=== PATIENT | female | born 1950 | race Caucasian/White ===

== ENCOUNTER 2019-04-03 11:40 | Emergency (ER) | payer OTHER ==
[2019-04-03] MEDS ORDERED: NA CHLORIDE 0.9% 500 ML ONE (15:33)
[2019-04-03] MEDS ORDERED: CLINDAMYCIN 900MG/D5W 900 MG/50 ML IVPB IV ONE (15:33)
--- NOTE | 2019-04-03 15:35 | RAD REPORT ---
EXAM DESCRIPTION: RAD - Chest Single View - 04/03/2019 3:20 pm CLINICAL HISTORY: COUGH Chest pain. COMPARISON: Chest Single View dated 03/07/2017; Chest Single View dated 11/20/2015; CHEST PA AND LAT 2 VIEW dated 08/20/2014 FINDINGS: Portable technique limits examination quality. The lungs are emphysematous but grossly clear. The heart is normal in size. No displaced fractures. IMPRESSION: No acute intrathoracic process suspected.
[2019-04-03 15:37] LABS: Absolute Lymphocytes (CBC) 2.9 K/uL (0.7-4.9); Basophils % 1.3 % (0-1.3); Hematocrit 42.3 % (36.0-45.0); Lymphocytes % 29.8 % (15.3-44.8); RBC Red Blood Cell Count 4.88 M/uL (3.86-4.86)
[2019-04-03 15:53] LABS: Albumin 4.1 g/dL (3.4-5.0); Bilirubin Total 0.5 mg/dL (0.2-1.0); Potassium 4.3 mmol/L (3.5-5.1); Protein, Total 7.5 g/dL (6.4-8.2)
--- NOTE | 2019-04-03 16:22 | EDPHYS ---
Physician Documentation [facility] Name: Traci Sams Age: 69 yrs Sex: Female : 1950 Arrival Date: 04/03/2019 Time: 11:42 Bed 30 Private MD: ED Physician Bob Peters HPI: 04/03 14:49 This 69 yrs old Female presents to ER via Ambulatory with complaints of Neck estelle Swelling. 14:49 The patient or guardian complains of pain, swelling. The symptoms are located on the estelle right anterior aspect of neck. Onset: The symptoms/episode began/occurred 5 day(s) ago. Context: The problem was sustained at an unknown location. Associated signs and symptoms: The patient has no apparent associated signs or symptoms. Modifying factors: The symptoms are alleviated by remaining still, the symptoms are aggravated by movement, pressure. Severity of symptoms: At their worst the symptoms were mild, in the emergency department the symptoms are unchanged. The patient has not experienced similar symptoms in the past. Historical: - Allergies: 11:43 Codeine; sv - Home Meds: 13:38 Vitamin D Oral daily [Active]; tw2 - PMHx: 11:43 Arthritis; Osteoporosis; sv - PSHx: 11:43 Hysterectomy; Appendectomy; ovary; throat; sv - Immunization history:: Adult Immunizations up to date. - Social history:: Smoking status: Patient/guardian denies using tobacco, the patient reports quitting approximately .1 years ago. - Ebola Screening: : No symptoms or risks identified at this time. ROS: 14:49 Constitutional: Negative for fever, chills, and weight loss, Eyes: Negative for injury, estelle pain, redness, and discharge, ENT: Negative for injury, pain, and discharge, Cardiovascular: Negative for chest pain, palpitations, and edema, Respiratory: Negative for shortness of breath, cough, wheezing, and pleuritic chest pain, Abdomen/GI: Negative for abdominal pain, nausea, vomiting, diarrhea, and constipation, Back: Negative for injury and pain, : Negative for injury, bleeding, discharge, and swelling, MS/Extremity: Negative for injury and deformity, Skin: Negative for injury, rash, and discoloration, Neuro: Negative for headache, weakness, numbness, tingling, and seizure, Psych: Negative for depression, anxiety, suicide ideation, homicidal ideation, and hallucinations, Allergy/Immunology: Negative for hives, rash, and allergies, Endocrine: Negative for neck swelling, polydipsia, polyuria, polyphagia, and marked weight changes, Hematologic/Lymphatic: Negative for swollen nodes, abnormal bleeding, and unusual bruising. 14:49 Neck: Positive for mass, swelling, tenderness. Exam: 14:49 Constitutional: This is a well developed, well nourished patient who is awake, alert, estelle and in no acute distress. Head/Face: Normocephalic, atraumatic. Eyes: Pupils equal round and reactive to light, extra-ocular motions intact. Lids and lashes normal. Conjunctiva and sclera are non-icteric and not injected. Cornea within normal limits. Periorbital areas with no swelling, redness, or edema. ENT: Nares patent. No nasal discharge, no septal abnormalities noted. Tympanic membranes are normal and external auditory canals are clear. Oropharynx with no redness, swelling, or masses, exudates, or evidence of obstruction, uvula midline. Mucous membranes moist. Chest/axilla: Normal chest wall appearance and motion. Nontender with no deformity. No lesions are appreciated. Cardiovascular: Regular rate and rhythm with a normal S1 and S2. No gallops, murmurs, or rubs. Normal PMI, no JVD. No pulse deficits. Respiratory: Lungs have equal breath sounds bilaterally, clear to auscultation and percussion. No rales, rhonchi or wheezes noted. No increased work of breathing, no retractions or nasal flaring. Abdomen/GI: Soft, non-tender, with normal bowel sounds. No distension or tympany. No guarding or rebound. No evidence of tenderness throughout. Back: No spinal tenderness. No costovertebral tenderness. Full range of motion. Skin: Warm, dry with normal turgor. Normal color with no rashes, no lesions, and no evidence of cellulitis. MS/ Extremity: Pulses equal, no cyanosis. Neurovascular intact. Full, normal range of motion. Neuro: Awake and alert, GCS 15, oriented to person, place, time, and situation. Cranial nerves II-XII grossly intact. Motor strength 5/5 in all extremities. Sensory grossly intact. Cerebellar exam normal. Normal gait. Psych: Awake, alert, with orientation to person, place and time. Behavior, mood, and affect are within normal limits. 14:49 Neck: External neck: no acute changes, C-spine: appears grossly normal, no acute changes, Thyroid: appears normal, no acute changes, Trachea: is midline with no obvious abnormalities, no acute changes, ROM/movement: is normal, no acute changes, Lymph nodes: no appreciated lymphadenopathy. Vital Signs: 11:44 BP 120 / 72; Pulse 99; Resp 20; Temp 97.6(O); Pulse Ox 99% ; Weight 91.63 kg; Height 5 sv ft. 0 in. (152.40 cm); 13:48 Temp 97.9; jp3 11:44 Body Mass Index 39.45 (91.63 kg, 152.40 cm) sv MDM: 13:33 Patient medically screened. [facility] 14:52 Data reviewed: vital signs, nurses notes, lab test result(s), radiologic studies, CT estelle scan, plain films. 04/03 14:49 Order name: CBC with Diff; Complete Time: 15:49 [facility] 04/03 14:49 Order name: Comprehensive Metabolic Panel; Complete Time: 16:07 [facility] 04/03 14:49 Order name: CT Soft Tissue Neck W/contr; Complete Time: 16:43 [facility] 04/03 14:49 Order name: Chest Single View XRAY; Complete Time: 15:49 [facility] Administered Medications: 15:43 Drug: Clindamycin 900 mg Route: IVPB; Infused Over: 30 mins; Site: left forearm; tr5 16:20 Follow up: IV Status: Completed infusion; IV Intake: 50ml tr5 15:44 Drug: NS 0.9% 500 ml Route: IV; Rate: bolus; Site: left forearm; tr5 16:20 Follow up: IV Status: Completed infusion; IV Intake: 500ml tr5 Disposition: 04/03/19 16:22 Discharged to Home. Impression: Localized swelling, mass and lump, neck - submandibular. - Condition is Stable. - Prescriptions for Clindamycin HCl 300 mg Oral Capsule - take 1 capsule by ORAL route every 6 hours for 7 days; 28 capsule. Tramadol 50 mg Oral Tablet - take 1 tablet by ORAL route every 6 hours as needed; 26 tablet. - Medication Reconciliation Form, Thank You Letter, Antibiotic Education, Prescription Opioid Use form. - Follow up: Private Physician; When: 2 - 3 days; Reason: Recheck today's complaints, Continuance of care, Re-evaluation by your physician. Follow up: Maisha Neil; When: 2 - 3 days; Reason: Recheck today's complaints, Re-evaluation by your physician. - Problem is new. - Symptoms have improved. Signatures: Dispatcher [employer] EDMS Maisha Grissom, RN RN Bob Olmos MD MD cha Wise, Tara, RN RN tw2 Vincent Ware RN RN tr5 Corrections: (The following items were deleted from the chart) 16:59 16:22 04/03/2019 16:22 Discharged to Home. Impression: Localized swelling, mass and tr5 lump, neck - submandibular. Condition is Stable. Forms are Medication Reconciliation Form, Thank You Letter, Antibiotic Education, Prescription Opioid Use. Follow up: Private Physician; When: 2 - 3 days; Reason: Recheck today's complaints, Continuance of care, Re-evaluation by your physician. Follow up: Maisha Neil; When: 2 - 3 days; Reason: Recheck today's complaints, Re-evaluation by your physician. Problem is new. Symptoms have improved. estelle
--- NOTE | 2019-04-03 16:22 | ER ---
Nurse's Notes [facility] Name: Traci Sams Age: 69 yrs Sex: Female : 1950 Arrival Date: 04/03/2019 Time: 11:42 Bed 30 Private MD: Diagnosis: Localized swelling, mass and lump, neck-submandibular Presentation: 04/03 11:43 Presenting complaint: Patient states: "I got this lump on my neck and its hard and its sv painful, came up yesterday.". Transition of care: patient was not received from another setting of care. Onset of symptoms was April 02, 2019. Risk Assessment: Do you want to hurt yourself or someone else? Patient reports no desire to harm self or others. Care prior to arrival: None. 11:43 Method Of Arrival: Ambulatory sv 11:43 Acuity: SHERON 3 sv 13:37 Initial Sepsis Screen: Does the patient meet any 2 criteria? No. Patient's initial tw2 sepsis screen is negative. Does the patient have a suspected source of infection? No. Patient's initial sepsis screen is negative. Triage Assessment: 11:45 General: Appears in no apparent distress. uncomfortable, Behavior is calm, cooperative, sv appropriate for age. Pain: Complains of pain in right anterior aspect of neck. Neuro: Level of Consciousness is awake, alert, obeys commands, Gait is steady. Respiratory: Respiratory effort is even, unlabored, Respiratory pattern is regular, symmetrical. Historical: - Allergies: 11:43 Codeine; sv - Home Meds: 13:38 Vitamin D Oral daily [Active]; tw2 - PMHx: 11:43 Arthritis; Osteoporosis; sv - PSHx: 11:43 Hysterectomy; Appendectomy; ovary; throat; sv - Immunization history:: Adult Immunizations up to date. - Social history:: Smoking status: Patient/guardian denies using tobacco, the patient reports quitting approximately .1 years ago. - Ebola Screening: : No symptoms or risks identified at this time. Screenin:37 Abuse screen: Denies threats or abuse. Nutritional screening: No deficits noted. tw2 Tuberculosis screening: No symptoms or risk factors identified. Fall Risk Secondary diagnosis (15 points) impaired mobility, Ambulatory Aid- Crutches/Cane/Walker (15 pts). Assessment: 15:00 General: Appears in no apparent distress. Behavior is calm, cooperative, appropriate tr5 for age. Pain: Complains of pain in neck. Neuro: Level of Consciousness is awake, alert, obeys commands, Oriented to person, place, time, Window Shade Cutter And Mounter are equal bilaterally Moves all extremities. Cardiovascular: Heart tones present Capillary refill < 3 seconds Pulses are all present. Respiratory: Airway is patent Respiratory effort is even, unlabored, Respiratory pattern is regular, symmetrical. GI: No signs and/or symptoms were reported involving the gastrointestinal system. : No signs and/or symptoms were reported regarding the genitourinary system. EENT: Throat on right Swelling. Derm: No signs and/or symptoms reported regarding the dermatologic system. Musculoskeletal: No signs and/or symptoms reported regarding the musculoskeletal system. Vital Signs: 11:44 BP 120 / 72; Pulse 99; Resp 20; Temp 97.6(O); Pulse Ox 99% ; Weight 91.63 kg; Height 5 sv ft. 0 in. (152.40 cm); 13:48 Temp 97.9; jp3 11:44 Body Mass Index 39.45 (91.63 kg, 152.40 cm) sv ED Course: 11:42 Patient arrived in ED. sv 11:44 Triage completed. sv 11:45 Arm band placed on. sv 13:33 Bob Peters MD is Attending Physician. estelle 13:36 Natalie Bermudez, RN is Primary Nurse. tw2 13:37 Bed in low position. Call light in reach. shelter monitor on. Pulse ox on. NIBP on. tw2 13:49 Warm blanket given. Verbal reassurance given. jp3 13:49 Patient maintains SpO2 saturation greater than 95% on room air. jp3 14:22 Vincent Ware, RN is Primary Nurse. tr5 14:54 Radiology exam delayed due to lab results not completed at this time. (BUN/Creatinine) sj IV insertion attempt and/or patient not having appropriate IV at this time. 15:18 Chest Single View XRAY In Process Unspecified. EDMS 15:25 Initial lab(s) drawn, by me, sent to lab. Inserted saline lock: 22 gauge in left tr5 forearm, using aseptic technique. 15:28 Radiology exam delayed due to lab results not completed at this time. (BUN/Creatinine). nj 15:48 Radiology exam delayed due to lab results not completed at this time. (BUN/Creatinine). ri 16:19 CT Soft Tissue Neck W/contr In Process Unspecified. EDNY 16:22 Maisha Neil MD is Referral Physician. [facility] 16:55 No provider procedures requiring assistance completed. IV discontinued. tr5 Administered Medications: 15:43 Drug: Clindamycin 900 mg Route: IVPB; Infused Over: 30 mins; Site: left forearm; tr5 16:20 Follow up: IV Status: Completed infusion; IV Intake: 50ml tr5 15:44 Drug: NS 0.9% 500 ml Route: IV; Rate: bolus; Site: left forearm; tr5 16:20 Follow up: IV Status: Completed infusion; IV Intake: 500ml tr5 Outcome: 16:22 Discharge ordered by . [facility] 16:55 Discharged to home ambulatory. tr5 16:55 Condition: stable 16:55 Discharge instructions given to patient, Instructed on discharge instructions, follow up and referral plans. medication usage, Demonstrated understanding of instructions, follow-up care, medications, Prescriptions given X 2. 16:59 Patient left the ED. tr5 Signatures: Dispatcher [employer] EDNY Maisha Grissom, RN RN Bob Olmos MD MD cha Jones, Susan sj Wise, Tara, RN RN tw2 Nj Solano Jacob jp3 Vincent Ware, CASSI RN tr5 Corrections: (The following items were deleted from the chart) 11:46 11:43 Acuity: SHERON 4 sv sv 11:46 11:44 Pulse 99bpm; Resp 20bpm; Pulse Ox 99%; Temp 97.6F Oral; 91.63 kg; Height 5 ft. 0 sv in.; BMI: 39.4; sv
--- NOTE | 2019-04-03 16:30 | RAD REPORT ---
EXAM DESCRIPTION: CT - Soft Tissue Neck W/Contr CLINICAL HISTORY: PAIN Neck pain, mass COMPARISON: No comparisons TECHNIQUE All CT scans are performed using dose optimization technique as appropriate and may includ e automated exposure control or mA/KV adjustment according to patient size. FINDINGS: Slightly hyperdense rounded mass is present measuring 15 x 15 mm along the inferior anteri or aspect of the left parotid gland. A few benign-appearing but mildly prominent lymph nodes are seen along the jugular chain bilaterally. The right submandibular gland appears slightly prominent relative to the left with evidence of mild dilatation the salivary duct within the gland. No prevertebral soft tissue swelling or abscess. Thyroid gland appears symmetric. 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
[2019-04-03 17:56] VITALS: BP 120/72; O2SAT 99
[2019-04-03 17:57] VITALS: TEMP 97.9
== END 2019-04-03 16:59 | disposition home or self-care (01) ==
LOC: ER 11:40
DX: R22.1 Localized swelling, mass and lump, neck (principal); Z88.6 Allergy status to analgesic agent
CPT/HCPCS: 96365; 85025; 36415; 80053; 70491; 71045; 99285; Q9967; J7040

== ENCOUNTER 2020-04-06 09:34 | Emergency (ER) | payer OTHER ==
--- OUTSIDE RECORDS SUMMARY | 2020-04-06 09:37 | XMS REPORT | Clinical Summary ---
:1950 Author Organization [facility] Address [address] [place] [address] Care Team Providers Name Role Phone Nirav Primary Care Provider Allergies Active Allergy Reactions Severity Noted Date Comments Raysa Other (See Comments) 10/04/2018 Does no t remember the reaction she quigley d Medications Medication Sig Dispensed Refills Start Date End Date Status Missing or Vit D daily . 0 Activ e Non-Formulary Medication diclofenac (VOLTAREN) Take 75 mg by 0 Active 75 MG EC tablet mouth 2 (two) times daily. alendronate (FOSAMAX) Take 70 mg by 0 Active 70 MG tablet mouth every 7 days Take in the morning with a full glass of water, on an empty stomach, and do not take anything else by mouth or lie down for the next 30 min. . Active Problems Not on file Social History Tobacco Use Types Packs/Day Years Used Date Current Every Day Smoker 0.5 27 Smokeless Tobacco: Never Used Alcohol Use Drinks/Week oz/Week Comments No Alcohol Habits Answer Date Recorded How often do you have a drink containing alcohol? Never 10/04/2018 How many drinks containing alcohol do you have on a typical Not asked day when you are drinking? How often do you have six or more drinks on one occasion? No t asked Sex Assigned at Date Recorded Not on file Last Filed Vital Signs Not on file Plan of Treatment Not on file Results Not on fileafter 04/06/2019 Insurance Payer Benefit Plan / Subscriber ID Effective Phone Address T ype Group Dates [employer] [id number] 2018-Pre [facility] ALL sent Contracted
[2020-04-06 10:05] LABS: Absolute Lymphocytes (CBC) 1.4 K/uL (0.7-4.9); Basophils % 1.3 % (0-1.3); Hematocrit 42.3 % (36.0-45.0); Lymphocytes % 14.9 % (15.3-44.8); MPV 8.7 fL (7.6-11.3)
[2020-04-06 10:11] LABS: Protime INR 1.03
[2020-04-06] MEDS ORDERED: ONDANSETRON 4 MG/2 ML VIAL ONE (10:13)
[2020-04-06] MEDS ORDERED: MECLIZINE HCL 12.5 MG TAB ONE (10:13)
[2020-04-06] MEDS ORDERED: NA CHLORIDE 0.9% 500 ML ONE (10:14)
--- NOTE | 2020-04-06 10:28 | RAD REPORT ---
EXAM DESCRIPTION: CT - Head Brain Wo Cont - 04/06/2020 10:10 am CLINICAL HISTORY: DIZZINESS COMPARISON: Soft Tissue Neck W/Contr dated 04/03/2019 TECHNIQUE: Axial 5 mm thick images of the head were obtained without IV contrast. All CT scans are performed using dose optimization technique as appropriate and may include automated exposure control or mA/KV adjustment according to patient size. FINDINGS: No intracranial hemorrhage, mass, edema or shift of mid-line structures. No acute cortical based infarction, cortical edema or sulcal effacement. Chronic ischemic changes are scattered in the cerebral white matter. Atrophy changes are minimal. Ventricles are normal. Mastoid air cells and visualized portions of the paranasal sinuses are clear. No acute bony findings. IMPRESSION: Minimal atrophy with mild chronic ischemic change. No acute intracranial finding.
[2020-04-06 10:30] LABS: ALT/SGPT 19 U/L (12-78); AST/SGOT 11 U/L (15-37); Albumin 3.5 g/dL (3.4-5.0); Alkaline Phosphatase 98 U/L (45-117); BUN Blood Urea Nitrogen 16 mg/dL (7-18); Bicarbonate 26 mmol/L (21-32); Bilirubin Direct 0.2 mg/dL (0-0.2); Bilirubin Total 0.6 mg/dL (0.2-1.0); Glucose Level 107 mg/dL (74-106); Magnesium 2.3 mg/dL (1.8-2.4); NT PRO-BNP 185 pg/mL (<125); Potassium 4.1 mmol/L (3.5-5.1); Protein, Total 7.4 g/dL (6.4-8.2); Sodium Level 141 mmol/L (136-145); Troponin (Emerg Dept Use Only) < 0.02 ng/mL (0.0-0.045)
[2020-04-06 12:09] LABS: Urine Bacteria >50 /HPF (<20); Urine Culture Reflex Order REFLEXED; Urine RBC <5 /HPF (NONE SEEN)
--- NOTE | 2020-04-06 12:14 | RAD REPORT ---
EXAM DESCRIPTION: RAD - Chest Single View - 04/06/2020 11:02 am CLINICAL HISTORY: SOB COMPARISON: June 2019 TECHNIQUE: AP portable chest image was obtained 04/06/2020 11:02 am . FINDINGS: Lungs are clear. Body habitus and portable technique accentuate lung bases. Pericardial fa t pads are present. Heart size is accentuated by rotation. No measurable pleural effusion and no pneu mothorax. No acute bony abnormality seen. No acute aortic findings suspected. IMPRESSION: No acute cardiopulmonary process. No significant change from comparison.
[2020-04-06 12:33] LABS: Urine Blood 2+ (NEG); Urine Glucose NEGATIVE (NEG); Urine Protein NEGATIVE (NEG); Urine pH 5.5 (5.0-7.0)
[2020-04-06] MEDS ORDERED: NA CHLORIDE 0.9% 100 ML IV ONE (12:39)
[2020-04-06] MEDS ORDERED: CEFTRIAXONE/SWI 1gm 1 GM/10 ML SYR ONE (12:39)
--- NOTE | 2020-04-06 13:23 | ER ---
Nurse's Notes [facility] Name: Traci Sams Age: 70 yrs Sex: Female : 1950 Arrival Date: 04/06/2020 Time: 09:37 Bed 6 Private MD: Diagnosis: Dizziness and giddiness;Nausea;Urinary tract infection, site not specified Presentation: 04/06 09:38 Chief complaint: EMS states: DIZZINESS AND NAUSEA THIS AM. Coronavirus screen: At this bp time, the client does not indicate any symptoms associated with coronavirus-19. Ebola Screen: No symptoms or risks identified at this time. Initial Sepsis Screen: Does the patient meet any 2 criteria? HR > 90 bpm. No. Patient's initial sepsis screen is negative. Does the patient have a suspected source of infection? No. Patient's initial sepsis screen is negative. Risk Assessment: Do you want to hurt yourself or someone else? Patient reports no desire to harm self or others. Onset of symptoms is unknown. Care prior to arrival: Medication(s) given: zofran 4 mg, IV initiated. 20 GA, in the right antecubital area. 09:38 Method Of Arrival: EMS: [facility] bp 09:38 Acuity: SHERON 3 bp Triage Assessment: 09:41 General: Appears distressed, obese, Behavior is cooperative, appropriate for age, bp anxious. Pain: Complains of pain in GENERALIZED CHRONIC. EENT: No deficits noted. Neuro: Reports dizziness. Cardiovascular: No deficits noted. Respiratory: No deficits noted. GI: No signs and/or symptoms were reported involving the gastrointestinal system. : No signs and/or symptoms were reported regarding the genitourinary system. Derm: No deficits noted. Musculoskeletal: No deficits noted. Historical: - Allergies: 09:41 Codeine; bp - PMHx: 09:41 Arthritis; Osteoporosis; COPD; bp - Immunization history:: Adult Immunizations unknown. - Social history:: Smoking status: Patient reports the use of cigarette tobacco products, Patient/guardian denies using tobacco, the patient reports quitting approximately 1 years ago. Screenin:44 Abuse screen: Denies threats or abuse. Denies injuries from another. Nutritional bp screening: No deficits noted. Tuberculosis screening: No symptoms or risk factors identified. Fall Risk None identified. Assessment: :44 General: SEE TRIAGE NOTE. bp 10:30 Reassessment: PT TO RADIOLOGY. bp 11:32 Reassessment: Patient appears in no apparent distress at this time. Patient and/or bp family updated on plan of care and expected duration. Pain level reassessed. UOP PENDING. 13:00 Reassessment: Patient appears in no apparent distress at this time. Patient and/or bp family updated on plan of care and expected duration. Pain level reassessed. Patient is alert, oriented x 3, equal unlabored respirations, skin warm/dry/pink. PT AMBULATED IN HALLWAY WITH CANE. 13:32 Reassessment: PT D/C HOME VIA W/C, DX WITH DIZZINESS AND NAUSEA. bp Vital Signs: 09:38 BP 118 / 50; Pulse 107; Resp 20; Temp 97.6; Pulse Ox 97% ; bp 11:10 BP 134 / 82 Supine; Pulse 95; Resp 20; Pulse Ox 95% on R/A; mh5 11:12 BP 149 / 84 Sitting; Pulse 102; Resp 20; Pulse Ox 92% on R/A; mh5 12:35 BP 139 / 66; Pulse 98; Resp 20; Temp 98.0; Pulse Ox 95% on R/A; dh4 13:32 BP 145 / 72; Pulse 95; Resp 17; Temp 98; Pulse Ox 95% ; bp ED Course: 09:37 Patient arrived in ED. em1 09:38 Donny Hauser, CASSI is Primary Nurse. bp 09:40 Triage completed. bp 09:41 Bob Zavala PA is PHCP. cp 09:41 Tyler Torres MD is Attending Physician. cp 09:41 Arm band placed on. bp 09:44 Patient has correct armband on for positive identification. Bed in low position. Call bp light in reach. Side rails up X2. 09:45 Maintain EMS IV. Dressing intact. Good blood return noted. Site clean \T\ dry. Gauge \T\ bp site: 20 GAUGE R AC. 10:10 CT Head Brain wo Cont In Process Unspecified. EDMS 11:04 XRAY Chest (1 view) In Process Unspecified. EDMS 11:21 Warm blanket given. property assessment monitor on. Pulse ox on. NIBP on. mh5 11:22 Initial lab(s) drawn, by ED staff, sent to lab. Maintain EMS IV. Site clean \T\ dry. [facility] 11:59 Urine Microscopic Only Sent. [facility] 11:59 Urine collected: clean catch specimen, cloudy. [facility] 13:32 No provider procedures requiring assistance completed. IV discontinued, intact, bp bleeding controlled, No redness/swelling at site. Pressure dressing applied. Administered Medications: 10:00 Drug: Meclizine 25 mg Route: PO; bp 12:18 Follow up: Response: No adverse reaction bp 10:00 Drug: Zofran (Ondansetron) 4 mg Route: IVP; Site: right antecubital; bp 12:18 Follow up: Response: No adverse reaction bp 10:00 Drug: NS 0.9% 500 ml Route: IV; Rate: 500 ml/hr; Site: right antecubital; bp 12:30 Drug: Rocephin - (cefTRIAXone) 1 grams Route: IVPB; Infused Over: 30 mins; Site: right bp antecubital; Outcome: 13:23 Discharge ordered by MD. 13:32 Discharged to home via wheelchair, with family. bp 13:32 Condition: stable 13:32 Discharge instructions given to patient, Instructed on discharge instructions, follow up and referral plans. medication usage, Demonstrated understanding of instructions, follow-up care, medications, Prescriptions given X 3. 13:33 Patient left the ED. bp Addendum: 04/09/2020 08:18 Addendum: Culture Results: Positive urine culture. No further action required. Bacteria s s sensitive to prescribed antibiotic. Signatures: Dispatcher [employer] EDMS Bryant Holden em1 Marcella Randall RN RN ss Page, Corey, PA PA cp Martinez, Maria [facility] Donny Hauser RN RN bp Huhn, Donald [facility] Corrections: (The following items were deleted from the chart) 04/06 12:35 11:14 BP 140 / 94 Standing; Pulse 106bpm; Resp 20bpm; Pulse Ox 94% RA; [facility]
--- NOTE | 2020-04-06 13:23 | EDPHYS ---
Physician Documentation [facility] Name: Traci Sams Age: 70 yrs Sex: Female : 1950 Arrival Date: 04/06/2020 Time: 09:37 Bed 6 Private MD: ED Physician Tyler Torres HPI: 04/06 09:50 This 70 yrs old Female presents to ER via EMS with complaints of Dizziness. cp 09:50 The patient presents with dizziness, feeling faint, generalized weakness, cp lightheadedness. Onset: The symptoms/episode began/occurred this morning. Modifying factors: the symptoms are aggravated by standing up, lying flat. Associated signs and symptoms: Pertinent positives: nausea, near-syncope, Pertinent negatives: abdominal pain, chest pain, diaphoresis, focal weakness, headache, palpitations, vomiting. Patient's baseline: Neuro: alert and fully oriented, Motor: no deficits, Ambulation: walks with assist only, uses cane, Speech: normal. Historical: - Allergies: 09:41 Codeine; bp - PMHx: 09:41 Arthritis; Osteoporosis; COPD; bp - Immunization history:: Adult Immunizations unknown. - Social history:: Smoking status: Patient reports the use of cigarette tobacco products, Patient/guardian denies using tobacco, the patient reports quitting approximately 1 years ago. ROS: 09:52 Eyes: Negative for injury, pain, redness, and discharge. cp 09:52 Constitutional: Negative for body aches, chills, fever, poor PO intake. 09:52 ENT: Negative for ear pain, sore throat, difficulty swallowing, difficulty handling secretions. 09:52 Cardiovascular: Negative for chest pain, edema, palpitations. 09:52 Respiratory: Negative for cough, shortness of breath, wheezing. 09:52 Abdomen/GI: Positive for nausea, Negative for abdominal pain, vomiting, diarrhea, constipation, black/tarry stool, rectal bleeding. 09:52 : Negative for urinary symptoms. 09:52 Skin: Negative for rash. 09:52 Neuro: Positive for dizziness, near syncope, weakness, Negative for altered mental status, speech changes, syncope. 09:52 All other systems are negative. Exam: 10:00 Constitutional: The patient appears in no acute distress, alert, awake, cp non-diaphoretic, non-toxic, well developed, well nourished. 10:00 Head/Face: Normocephalic, atraumatic. cp 10:00 Eyes: Periorbital structures: appear normal, Pupils: equal, round, and reactive to light and accomodation, Extraocular movements: intact throughout, Conjunctiva: normal, no exudate, no injection, Sclera: no appreciated abnormality, Lids and lashes: appear normal, bilaterally. 10:00 ENT: External ear(s): are unremarkable, Ear canal(s): are normal, clear, TM's: dullness, bilaterally, Nose: is normal, Mouth: Lips: dry, Oral mucosa: moist, Posterior pharynx: is normal, airway is patent, no erythema, no exudate. 10:00 Neck: ROM/movement: is normal, is supple, without pain, no range of motions limitations. 10:00 Chest/axilla: Inspection: normal, Palpation: is normal, no crepitus, no tenderness. 10:00 Cardiovascular: Rate: tachycardic, Rhythm: regular, Edema: is not appreciated, JVD: is not appreciated. 10:00 Respiratory: the patient does not display signs of respiratory distress, Respirations: normal, no use of accessory muscles, no retractions, labored breathing, is not present. 10:00 Abdomen/GI: Inspection: abdomen appears normal, Bowel sounds: active, all quadrants, Palpation: abdomen is soft and non-tender, in all quadrants, rebound tenderness, is not appreciated, voluntary guarding, is not appreciated, involuntary guarding, is not appreciated. 10:00 Back: pain, is absent, ROM is normal. 10:00 Neuro: Orientation: to person, place \T\ time. Mentation: is normal, Cerebellar function: Romberg testing is negative, normal finger to nose testing, heel to bush testing is normal, Motor: moves all fours, strength is normal, Sensation: no obvious gross deficits. 11:15 ECG was reviewed by the Attending Physician. cp Vital Signs: 09:38 BP 118 / 50; Pulse 107; Resp 20; Temp 97.6; Pulse Ox 97% ; bp 11:10 BP 134 / 82 Supine; Pulse 95; Resp 20; Pulse Ox 95% on R/A; mh5 11:12 BP 149 / 84 Sitting; Pulse 102; Resp 20; Pulse Ox 92% on R/A; mh5 12:35 BP 139 / 66; Pulse 98; Resp 20; Temp 98.0; Pulse Ox 95% on R/A; dh4 13:32 BP 145 / 72; Pulse 95; Resp 17; Temp 98; Pulse Ox 95% ; bp MDM: 09:41 Patient medically screened. 13:22 Data reviewed: vital signs, nurses notes, lab test result(s), EKG, radiologic studies, cp CT scan, plain films. 13:22 Test interpretation: by ED physician or midlevel provider: ECG, chest xray negative for cp infiltrates. 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 Response to treatment: the patient's symptoms have markedly improved after treatment, patient is well hydrated. Nausea and dizziness markedly improved. Patient observed ambulating with steady gait and use of cane in ED. Will discharge to home for continued monitoring. 04/06 09:43 Order name: Basic Metabolic Panel; Complete Time: 11:33 04/06 11:33 Interpretation: Normal except: CL 110; GLUC 107; GFR 70. 04/06 09:43 Order name: CBC with Diff; Complete Time: 11:33 04/06 11:33 Interpretation: Normal except: RBC 5.10; MCV 83.0; SANDY% 77.7; LYM% 14.9. 04/06 09:43 Order name: LFT's; Complete Time: 11:33 04/06 11:34 Interpretation: Normal except: AST 11; GLOB 3.9; A/G 0.9. 04/06 09:43 Order name: Magnesium; Complete Time: 11:33 04/06 09:43 Order name: NT PRO-BNP; Complete Time: 11:33 04/06 09:43 Order name: PT-INR; Complete Time: 11:33 04/06 09:43 Order name: CT Head Brain wo Cont; Complete Time: 11:33 04/06 11:34 Interpretation: Report reviewed. 04/06 09:43 Order name: Troponin (emerg Dept Use Only); Complete Time: 11:33 cp 04/06 09:43 Order name: XRAY Chest (1 view); Complete Time: 12:15 cp 04/06 09:43 Order name: Urine Microscopic Only; Complete Time: 12:15 cp 04/06 12:15 Interpretation: Reviewed. 04/06 12:10 Order name: Urine Culture EDRI 04/06 12:15 Order name: Urine Dipstick--Ancillary (enter results) em1 04/06 09:43 Order name: Orthostatics; Complete Time: 11:02 cp 04/06 09:43 Order name: EKG; Complete Time: 09:44 cp 04/06 09:43 Order name: Cardiac monitoring; Complete Time: 09:46 cp 04/06 09:43 Order name: EKG - Nurse/Tech; Complete Time: 11:02 cp 04/06 09:43 Order name: IV Saline Lock; Complete Time: 10:26 cp 04/06 09:43 Order name: Labs collected and sent; Complete Time: 10:26 cp 04/06 09:43 Order name: O2 Per Protocol; Complete Time: 09:47 cp 04/06 09:43 Order name: O2 Sat Monitoring; Complete Time: 09:47 cp 04/06 09:43 Order name: Urine Dipstick-Ancillary (obtain specimen); Complete Time: 11:59 cp EC:15 Rate is 90 beats/min. Rhythm is regular. DE interval is normal. QRS interval is normal. cp QT interval is normal. T waves are Inverted in lead aVR. Interpreted by me. Reviewed by me. Administered Medications: 10:00 Drug: Meclizine 25 mg Route: PO; bp 12:18 Follow up: Response: No adverse reaction bp 10:00 Drug: Zofran (Ondansetron) 4 mg Route: IVP; Site: right antecubital; bp 12:18 Follow up: Response: No adverse reaction bp 10:00 Drug: NS 0.9% 500 ml Route: IV; Rate: 500 ml/hr; Site: right antecubital; bp 12:30 Drug: Rocephin - (cefTRIAXone) 1 grams Route: IVPB; Infused Over: 30 mins; Site: right bp antecubital; Disposition: 04/07 06:45 Co-signature as Attending Physician, Tyler Torres MD I agree with the assessment and kdr plan of care. Disposition: 04/06/20 13:23 Discharged to Home. Impression: Dizziness and giddiness, Nausea, Urinary tract infection, site not specified. - Condition is Stable. - Discharge Instructions: Dizziness, Nausea, Adult, Urinary Tract Infection, Adult. - Prescriptions for Augmentin 875- 125 mg Oral Tablet - take 1 tablet by ORAL route every 12 hours for 10 days; 20 tablet. Meclizine 25 mg Oral Tablet - take 1 tablet by ORAL route every 8 hours As needed; 30 tablet. Zofran 4 mg Oral Tablet - take 1 tablet by ORAL route every 12 hours As needed; 20 tablet. - Medication Reconciliation Form, Thank You Letter, Antibiotic Education, Prescription Opioid Use form. - Follow up: Private Physician; When: 1 - 2 days; Reason: Recheck today's complaints. - Problem is new. - Symptoms have improved. Signatures: Dispatcher [employer] EDMS Tyler Torres MD MD [facility] Bob Zavala PA PA cp Donny Hauser, RN RN bp Corrections: (The following items were deleted from the chart) 04/06 13:33 13:23 04/06/2020 13:23 Discharged to Home. Impression: Dizziness and giddiness; Nausea; bp Urinary tract infection, site not specified. Condition is Stable. Forms are Medication Reconciliation Form, Thank You Letter, Antibiotic Education, Prescription Opioid Use. Follow up: Private Physician; When: 1 - 2 days; Reason: Recheck today's complaints. Problem is new. Symptoms have improved. cp
[2020-04-06 13:43] VITALS: O2SAT 95
[2020-04-06 13:45] VITALS: BP 145/72; TEMP 98
== END 2020-04-06 13:33 | disposition home or self-care (01) ==
LOC: ER 09:34
DX: N39.0 Urinary tract infection, site not specified (principal); R11.0 Nausea; J44.9 Chronic obstructive pulmonary disease, unspecified; Z88.5 Allergy status to narcotic agent
CPT/HCPCS: 93005; 87088; 85025; 87086; 80048; 36415; 83735; 85610; 80076; 87077; 87186; 84484; 83880; 70450; 71045; 96375; 96374; 99284; J0696; J7040; J2405; 81003; 81015

== ENCOUNTER 2023-07-28 02:41 | Inpatient (IN) | payer OTHER ==
[2023-07-28] MEDS ORDERED: ASPIRIN 81 MG CHEWABLE TABLET ONE (03:08)
[2023-07-28 03:21] LABS: Protime INR 1.12
[2023-07-28 03:23] LABS: Absolute Lymphocytes (CBC) 2.6 K/uL (0.7-4.9); Hematocrit 38.8 % (36.0-45.0); Lymphocytes % 27.6 % (15.3-44.8); MCV 84.7 fL (80-100); MPV 8.7 fL (7.6-11.3); Platelets 222 thou/uL (152-406); RBC Red Blood Cell Count 4.58 M/uL (3.86-4.86)
[2023-07-28] MEDS ORDERED: ALBUTEROL 2.5 MG/3 ML NEB SOL ONE (03:35)
[2023-07-28 03:36] LABS: Albumin 3.4 g/dL (3.4-5.0); Bilirubin Direct 0.3 mg/dL (0-0.2); Bilirubin Indirect, Calculated 0.4 mg/dL (0.2-0.8); Bilirubin Total 0.7 mg/dL (0.2-1.0); Magnesium 2.2 mg/dL (1.6-2.4); Potassium 3.8 mEq/L (3.5-5.1); Protein, Total 6.7 g/dL (6.4-8.2)
[2023-07-28] MEDS ORDERED: IPRATROPIUM BROM 0.5MG/2.5ML ONE (03:36)
[2023-07-28 03:38] LABS: Troponin High Sensitivity 126.4 pg/mL (<58.9)
[2023-07-28] MEDS ORDERED: ENOXAPARIN 100 MG/ML SYR SQ ONE (03:49)
[2023-07-28] MEDS ORDERED: FUROSEMIDE 20 MG/ 2ML VIAL ONE ×2 (03:49→11:55)
[2023-07-28] MEDS ORDERED: METHYLPREDNISOLONE 125 MG INJ ONE (04:26)
--- NOTE | 2023-07-28 04:31 | ER ---
Nurse's Notes [facility] Name: Traci Sams Age: 73 yrs Sex: Female : 1950 Arrival Date: 07/28/2023 Time: 02:41 Bed 8 Private MD: Diagnosis: Unspecified combined systolic (congestive) and diastolic (congestive) heart failure;Dyspnea;Subsequent non-ST elevation (NSTEMI) myocardial infarction Presentation: 07/28 03:02 Chief complaint: EMS states: on and off chest pain for two days, with SOB. 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 Coronavirus screen: At this time, the client does not indicate any symptoms associated with coronavirus-19. Ebola Screen: No symptoms or risks identified at this time. Initial Sepsis Screen: Does the patient meet any 2 criteria? No. Patient's initial sepsis screen is negative. Does the patient have a suspected source of infection? No. Patient's initial sepsis screen is negative. Risk Assessment: Do you want to hurt yourself or someone else? Patient reports no desire to harm self or others. Onset of symptoms was July 28, 2023. 03:02 Method Of Arrival: EMS: [facility] rv 03:02 Acuity: SHERON 2 rv Triage Assessment: 03:03 General: Appears comfortable, Behavior is calm, cooperative. Pain: Denies pain. Neuro: rv Level of Consciousness is awake, alert, obeys commands, Oriented to person, place, time, situation. Cardiovascular: Capillary refill < 3 seconds Patient's skin is warm and dry. Cardiovascular: Reports chest pain. Respiratory: Reports shortness of breath Airway is patent Respiratory effort is even, unlabored. GI: No signs and/or symptoms were reported involving the gastrointestinal system. : No signs and/or symptoms were reported regarding the genitourinary system. Derm: Skin is intact. Historical: - Allergies: 03:03 Codeine; rv - PMHx: 03:03 Arthritis; COPD; Osteoporosis; Congestive heart failure; rv - PSHx: 03:03 None; rv - Immunization history:: Adult Immunizations up to date. - Social history:: Smoking status: Patient denies any tobacco usage or history of. Screenin:[address] [facility] ED Fall Risk Assessment (Adult) History of falling in the last 3 months, rv including since admission No falls in past 3 months (0 pts) Score/Fall Risk Level 0 - 2 = Low Risk Oriented to surroundings, Maintained a safe environment, Educated pt \T\ family on fall prevention, incl call for assistance when getting out of bed, Assessed \T\ reinforced patient's understanding of fall precautions. Abuse screen: Denies threats or abuse. Denies injuries from another. Nutritional screening: No deficits noted. Tuberculosis screening: No symptoms or risk factors identified. Vital Signs: 03:07 BP 127 / 76; Pulse 80; Resp 16; Temp 98.5(O); Pulse Ox 96% on R/A; Weight 92.08 kg (R); jb4 Height 5 ft. 0 in. ; Pain 5/10; 03:30 BP 119 / 72; Pulse 77; Resp 18; Temp 97.8; Pulse Ox 94% on R/A; as9 04:11 BP 116 / 100; Pulse 72; Resp 20; Pulse Ox 100% on R/A; as9 03:07 Body Mass Index 39.65 (92.08 kg, 152.4 cm) jb4 03:07 Pain Scale: Adult jb4 ED Course: 02:43 Patient arrived in ED. rv1 02:43 Bob Zavala PA is PHCP. cp 02:43 Bob Peters MD is Attending Physician. cp 03:00 Initial lab(s) drawn, by me, sent to lab. Inserted saline lock: 18 gauge in right jb4 antecubital area, using aseptic technique. Blood collected. 03:03 Triage completed. rv 03:03 Arm band placed on right wrist. rv 03:05 Patient has correct armband on for positive identification. Client placed on continuous rv cardiac and pulse oximetry monitoring. NIBP monitoring applied. reliner on. 03:35 XRAY Chest (1 view) In Process Unspecified. EDMS 04:10 Urinalysis W/Microscopic Sent. as9 04:29 Jamil Wilson MD is Hospitalizing Provider. cp 05:10 Inserted saline lock: 22 gauge in left forearm, using aseptic technique. Blood rv collected. 05:26 No provider procedures requiring assistance completed. rv 05:35 Provided Education on: VACCINES. rv 05:35 Patient admitted, IV remains in place. rv Administered Medications: 03:33 Drug: Aspirin PO Chewable Tablet 324 mg PO once; 81 mg tablets x 4 Route: PO; as9 04:33 Follow up: Response: No adverse reaction; Marked relief of symptoms as9 03:40 Drug: DuoNeb Nebulize (2.5 mg - 0.5 mg) 3 ml Nebulizer once Route: Nebulizer; as9 04:33 Follow up: Response: No adverse reaction; Marked relief of symptoms as9 04:10 Drug: Enoxaparin Sub-Q 1 mg/kg Sub-Q once Route: Sub-Q; Site: right lower abdomen; as9 04:33 Follow up: Response: No adverse reaction as9 04:19 Drug: Furosemide IVP 20 mg IVP once; give over 2 minutes Route: IVP; Site: right as9 antecubital; 05:37 Follow up: Response: No adverse reaction; Marked relief of symptoms rv 04:32 Drug: MethylPrednisoLONE IVP 125 mg IVP once Route: IVP; Site: right antecubital; as9 05:37 Follow up: Response: No adverse reaction; Marked relief of symptoms rv 05:25 Drug: levofloxacin IVPB 750 mg 150 ml IVPB once over 90 mins Volume: 150 ml; Route: rv IVPB; Infused Over: 90 mins; Site: left forearm; 05:36 Follow up: IV Status: Infusion continued upon admission rv Medication: 03:04 VIS not applicable for this client. rv Outcome: 04:30 Decision to Hospitalize by Provider. cp 05:35 Admitted to ER Hold. Please see [facility] for further documentation. rv 05:35 Condition: good 05:35 Instructed on the need for admit, 18:01 Patient left the ED. rs5 Signatures: Dispatcher [employer] EDBob Gerber PA PA cp Bryson, James RN RN jb4 Jerry Guan, RN RN rv Esther Self rv1 Bruno Correa RN RN rs5 Joseph Helms, RN RN as9
--- NOTE | 2023-07-28 04:31 | EDPHYS ---
Physician Documentation [facility] Name: Traci Sams Age: 73 yrs Sex: Female : 1950 Arrival Date: 07/28/2023 Time: 02:41 Bed 8 Private MD: ED Physician Bob Peters HPI: 07/28 02:55 This 73 yrs old Female presents to ER via Unassigned with complaints of Chest Pain. cp 02:55 The patient or guardian reports chest pain that is located primarily in the anterior cp chest wall. Onset: last night, and improved. Associated signs and symptoms: Pertinent positives: shortness of breath. The chest pain is described as a pressure. Duration: The patient or guardian reports multiple episodes, that are intermittent. Historical: - Allergies: 03:03 Codeine; rv - PMHx: 03:03 Arthritis; COPD; Osteoporosis; Congestive heart failure; rv - PSHx: 03:03 None; rv - Immunization history:: Adult Immunizations up to date. - Social history:: Smoking status: Patient denies any tobacco usage or history of. ROS: 03:00 Constitutional: Negative for body aches, chills, fever, poor PO intake, cp 03:00 Eyes: Negative for injury, pain, redness, and discharge, cp 03:00 ENT: Negative for drainage from ear(s), ear pain, sore throat, difficulty swallowing, difficulty handling secretions, 03:00 Cardiovascular: Positive for chest pain, 03:00 Respiratory: Positive for shortness of breath, at rest. Negative for cough, wheezing, 03:00 Abdomen/GI: Negative for abdominal pain, nausea, vomiting, and diarrhea, 03:00 Neuro: Negative for altered mental status, dizziness, headache, syncope, weakness, 03:00 All other systems are negative, Exam: 03:05 Constitutional: The patient appears in no acute distress, alert, awake, cp non-diaphoretic, non-toxic, well developed, well nourished, 03:05 Head/Face: Normocephalic, atraumatic. cp 03:05 Eyes: Periorbital structures: appear normal, Conjunctiva: normal, no exudate, no cp injection, Sclera: no appreciated abnormality, Lids and lashes: appear normal, bilaterally, 03:05 ENT: External ear(s): are unremarkable, Nose: is normal, Mouth: Lips: moist, Oral cp mucosa: pink and intact, moist, Posterior pharynx: is normal, airway is patent, no erythema, no exudate, 03:05 Neck: ROM/movement: is normal, is supple, without pain, no range of motions limitations, 03:05 Chest/axilla: Inspection: normal, 03:05 Cardiovascular: Rate: normal, Rhythm: regular, Edema: is not appreciated, ankle edema, that is very mild, JVD: is not appreciated, 03:05 Respiratory: the patient does not display signs of respiratory distress, Respirations: labored breathing, that is mild, Breath sounds: bronchial sounds, that are mild, are heard diffusely, decreased breath sounds, that are mild, throughout, stridor, is not appreciated, 03:05 Abdomen/GI: Inspection: abdomen appears normal, Palpation: abdomen is soft and non-tender, in all quadrants, 03:05 Back: pain, is absent, ROM is normal, 03:05 Neuro: Orientation: to person, place \T\ time. Mentation: is normal, Motor: moves all fours, strength is normal, Sensation: is normal, 03:33 ECG was reviewed by the Attending Physician. Vital Signs: 03:07 BP 127 / 76; Pulse 80; Resp 16; Temp 98.5(O); Pulse Ox 96% on R/A; Weight 92.08 kg (R); jb4 Height 5 ft. 0 in. ; Pain 5/10; 03:30 BP 119 / 72; Pulse 77; Resp 18; Temp 97.8; Pulse Ox 94% on R/A; as9 04:11 BP 116 / 100; Pulse 72; Resp 20; Pulse Ox 100% on R/A; as9 03:07 Body Mass Index 39.65 (92.08 kg, 152.4 cm) jb4 03:07 Pain Scale: Adult jb4 MDM: 02:43 Patient medically screened. cp 04:35 The patient was given aspirin in the Emergency Department. cp 04:35 Data reviewed: vital signs, nurses notes, lab test result(s), EKG, radiologic studies, cp CT scan, plain films. Management of patient was discussed with the following: Hospitalist: DR Wilson will admit after discussion. Independent interpretation of the following test(s) in the Emergency Department EKG: See my EKG interpretation above. Care significantly affected by the following chronic conditions: Congestive Heart Failure, Chronic Obstructive Pulmonary Disease. Counseling: I had a detailed discussion with the patient and/or guardian regarding the historical points, exam findings, and any diagnostic results supporting the discharge/admit diagnosis, the presence of at least one elevated blood pressure reading (>120/80) during this emergency department visit, lab results, radiology results, the need for further work-up and treatment in the hospital. Response to treatment: the patient's symptoms have markedly improved after treatment, and as a result, I will admit patient. 07/28 02:49 Order name: Basic Metabolic Panel; Complete Time: 03:41 cp 07/28 03:42 Interpretation: Normal except: CL 112; BUN 25; GFR 76. cp 07/28 02:49 Order name: CBC with Diff; Complete Time: 03:41 cp 07/28 02:49 Order name: LFT's; Complete Time: 03:41 cp 07/28 03:42 Interpretation: Normal except: AST 11; BILID 0.3; A/G 1.0. cp 07/28 02:49 Order name: Magnesium; Complete Time: 03:41 cp 07/28 02:49 Order name: NT PRO-BNP; Complete Time: 03:41 cp 07/28 03:42 Interpretation: Abnormal: NT PRO-BNP 464. cp 07/28 02:49 Order name: PT-INR; Complete Time: 03:41 cp 07/28 02:49 Order name: Troponin HS; Complete Time: 03:41 cp 07/28 03:42 Interpretation: Abnormal: Troponin HS 126.4. cp 07/28 02:49 Order name: Urinalysis W/Microscopic cp 07/28 04:34 Order name: Lactate w/ 2H reflex if indic. cp 07/28 04:34 Order name: Blood Culture Adult (2) cp 07/28 04:59 Order name: Urinalysis w/ reflexes EDMS 07/28 04:59 Order name: CBC with Automated Diff EDMS 07/28 04:59 Order name: CBC with Automated Diff EDMS 07/28 04:59 Order name: Comprehensive Metabolic Panel EDMS 07/28 04:59 Order name: Comprehensive Metabolic Panel EDMS 07/28 04:59 Order name: Magnesium EDMS 07/28 04:59 Order name: Magnesium EDMS 07/28 04:59 Order name: Troponin High Sensitivity EDMS 07/28 04:59 Order name: Troponin High Sensitivity EDMS 07/28 05:04 Order name: Procalcitonin EDCA 07/28 02:49 Order name: XRAY Chest (1 view) cp 07/28 05:05 Order name: Echo with Doppler EDCA 07/28 02:49 Order name: EKG; Complete Time: 02:49 cp 07/28 02:49 Order name: Cardiac monitoring; Complete Time: 03:32 cp 07/28 02:49 Order name: EKG - Nurse/Tech; Complete Time: 03:32 cp 07/28 02:49 Order name: IV Saline Lock; Complete Time: 03:07 cp 07/28 02:49 Order name: Labs collected and sent; Complete Time: 03:07 cp 07/28 02:49 Order name: O2 Per Protocol; Complete Time: 03:07 cp 07/28 02:49 Order name: O2 Sat Monitoring; Complete Time: 03:07 cp EC:33 Rate is 85 beats/min. Rhythm is regular. MN interval is normal. QRS interval is normal. cp QT interval is normal. T waves are Inverted in lead aVR. Interpreted by me. Reviewed by me. Administered Medications: 03:33 Drug: Aspirin PO Chewable Tablet 324 mg PO once; 81 mg tablets x 4 Route: PO; as9 04:33 Follow up: Response: No adverse reaction; Marked relief of symptoms as9 03:40 Drug: DuoNeb Nebulize (2.5 mg - 0.5 mg) 3 ml Nebulizer once Route: Nebulizer; as9 04:33 Follow up: Response: No adverse reaction; Marked relief of symptoms as9 04:10 Drug: Enoxaparin Sub-Q 1 mg/kg Sub-Q once Route: Sub-Q; Site: right lower abdomen; as9 04:33 Follow up: Response: No adverse reaction as9 04:19 Drug: Furosemide IVP 20 mg IVP once; give over 2 minutes Route: IVP; Site: right as9 antecubital; 05:37 Follow up: Response: No adverse reaction; Marked relief of symptoms rv 04:32 Drug: MethylPrednisoLONE IVP 125 mg IVP once Route: IVP; Site: right antecubital; as9 05:37 Follow up: Response: No adverse reaction; Marked relief of symptoms rv 05:25 Drug: levofloxacin IVPB 750 mg 150 ml IVPB once over 90 mins Volume: 150 ml; Route: rv IVPB; Infused Over: 90 mins; Site: left forearm; 05:36 Follow up: IV Status: Infusion continued upon admission rv Disposition Summary: 07/28/23 04:30 Hospitalization Ordered Notes: Hospitalization Status: Inpatient Admission cp Provider: Jamil Wilson cp Condition: Stable cp Problem: new cp Symptoms: have improved cp Bed/Room Type: Standard cp Location: Telemetry/MedSurg (Inpatient)(07/28/23 16:43) em1 Room Assignment: 222(07/28/23 16:43) em1 Diagnosis - Unspecified combined systolic (congestive) and diastolic (congestive) heart failure cp - Dyspnea cp - Subsequent non-ST elevation (NSTEMI) myocardial infarction cp Forms: - Medication Reconciliation Form cp - SBAR form cp - Leadership Thank You Letter cp Signatures: Dispatcher [employer] EDMS Bryant Holden em1 Bob Zavala PA PA cp Jerry Guan, RN RN rv Esther Self rv1 Joseph Helms RN RN as9 Corrections: (The following items were deleted from the chart) 03:37 03:03 SARS-COV-2 Antigen Rapid+I.LAB.BRZ ordered. EDMS EDMS 04:19 03:44 Chest For PE Angio+CT.RAD.BRZ ordered. EDMS EDMS 05:22 04:30 Telemetry/MedSurg (Inpatient) cp rv1 05:22 04:30 cp rv1 16:43 05:22 BR ER HOLD rv1 em1 16:43 05:22 ERHOLD- rv1 em1
[2023-07-28] MEDS ORDERED: ONDANSETRON 4 MG/2 ML VIAL IV PRN (04:56)
[2023-07-28] MEDS ORDERED: TRAMADOL HCL 50 MG TAB PO PRN (04:58)
[2023-07-28] MEDS ORDERED: MORPHINE 2 MG/ML SYR IV PRN (04:58)
[2023-07-28] MEDS: ENOXAPARIN 100 MG/ML SYR SQ ONE (05:08)
--- NOTE | 2023-07-28 05:09 | P.HP ---
Patient History Date of Service: 07/28/23 Reason for admission: Shortness of breath History of Present Illness: 73-year-old female with a history of CHF, COPD, carotid stenosis, CAD and arthritis presented to the ED with 5 days of worsening shortness of breath with minimal exertion. Shortness of breath has gradually worsened and now associated with intermittent sharp left-sided chest pain. She has nonproductive cough mild leg swelling but denies paralysis manage no dyspnea or orthopnea. On arrival to the ED her vital signs are within normal limits. Her labs showed BUN 25, BNP 464 and troponin of 126. Chest x-ray showed patchy bibasilar opacities. There is no acute findings on EKG. Allergies codeine Allergy (Unverified 11/20/15 18:38) Unknown NKA Allergy (Uncoded 07/11/15 08:48) Unknown NKDA Allergy (Uncoded 07/10/15 20:28) Unknown Review of Systems 10-point ROS is otherwise unremarkable Physical Examination - Vital Signs Temperature: 98.5 F Blood Pressure: 119/84 Pulse: 76 Respirations: 19 Pulse Ox (%): 94 - Physical Exam General: Alert, In no apparent distress, Oriented x3 HEENT: Atraumatic, Normocephalic, Mucous membr. moist/pink Neck: Supple, JVD not distended Respiratory: Clear to auscultation bilaterally, Normal air movement Cardiovascular: No edema, Regular rate/rhythm, Normal S1 S2 Gastrointestinal: Normal bowel sounds, Soft and benign Musculoskeletal: No swelling, No erythema Integumentary: No rashes Neurological: Normal speech, Normal strength at 5/5 x4 extr, Normal tone - Studies Laboratory Data (last 24 hrs) 07/28/23 07/28/23 07/28/23 03:00 03:00 03:00 WBC 9.30 Hgb 13.2 Hct 38.8 Plt Count 222 PT 12.3 INR 1.12 Sodium 143 Potassium 3.8 BUN 25 H Creatinine 0.82 Glucose 101 Magnesium 2.2 Total Bilirubin 0.7 AST 11 L ALT 21 Alkaline Phosphatase 85 Assessment and Plan - Plan Acute CHF exacerbation, NSTEMI CAD Copd w/o exacerbation Carotid stenosis Arthritis Plan Admit to telemetry Start IV Lasix Daily weight, I/Os Cardiology consult Give a dose of weight based Lovenox F/u echo and procalcitonin and blood cultures - Advance Directives Does patient have a Living Will: No Does patient have a Durable POA for Healthcare: No
--- NOTE | 2023-07-28 05:14 | P.HP ---
Patient History Date of Service: 07/28/23 Allergies codeine Allergy (Unverified 11/20/15 18:38) Unknown NKA Allergy (Uncoded 07/11/15 08:48) Unknown NKDA Allergy (Uncoded 07/10/15 20:28) Unknown Physical Examination - Studies Laboratory Data (last 24 hrs) 07/28/23 07/28/23 07/28/23 03:00 03:00 03:00 WBC 9.30 Hgb 13.2 Hct 38.8 Plt Count 222 PT 12.3 INR 1.12 Sodium 143 Potassium 3.8 BUN 25 H Creatinine 0.82 Glucose 101 Magnesium 2.2 Total Bilirubin 0.7 AST 11 L ALT 21 Alkaline Phosphatase 85 Assessment and Plan - Advance Directives Does patient have a Living Will: No Does patient have a Durable POA for Healthcare: No
[2023-07-28] MEDS ORDERED: Levofloxacin 750mg IV 750 MG/150 ML BAG IV ONE (05:19)
[2023-07-28 05:23] LABS: Specific Gravity 1.027 (1.005-1.030); Urine Bacteria None Seen /HPF (<20); Urine Bilirubin NEGATIVE (Negative); Urine Blood Negative (Negative); Urine Clarity Clear (Clear); Urine Color Yellow (Yellow); Urine Glucose NEGATIVE (Negative); Urine Mucus 2+ /HPF (None Seen); Urine Protein NEGATIVE (Negative); Urine RBC <5 /HPF (None Seen); Urine Urobilinogen Normal (Normal); Urine pH 5.5 (5.0-7.0)
[2023-07-28 05:55] VITALS: BMI 39.6
[2023-07-28] MEDS ORDERED: NITROGLYCERIN 0.4 MG/TAB SL ONE (06:10)
[2023-07-28] MEDS: NITROGLYCERIN 0.4 MG/TAB SL PRN (06:14)
[2023-07-28] MEDS: PNEUMOCOCCAL VACCINE 0.5 ML IMVAC ONE (08:00)
[2023-07-28] MEDS: INFLUENZA VACCINE (for 6+ mo) 0.5 ML DOSE IMVAC ONE (08:00)
[2023-07-28] MEDS ORDERED: ENOXAPARIN 40 MG/0.4 ML SQ SCH (09:00)
[2023-07-28] MEDS: FUROSEMIDE 20 MG/ 2ML VIAL IV SCH (12:00)
--- NOTE | 2023-07-28 12:40 | RAD REPORT ---
EXAM DESCRIPTION: XR Chest, 1 View CLINICAL HISTORY: Chest pain; SOB TECHNIQUE: Frontal view of the chest. COMPARISON: No relevant prior studies available. FINDINGS: Lungs: Coarsened interstitial markings. Minimal patchy bibasilar opacities. Pleural space: Unremarkable. No pneumothorax. Heart: The cardiac silhouette is mildly enlarged, in part accentuated by portable technique. Mediastinum: Unremarkable. Normal mediastinal contour. Bones/joints: Unremarkable. No acute fracture. Vasculature: Thoracic aortic atherosclerosis. IMPRESSION: Minimal patchy bibasilar opacities (atelectasis and/or infiltrate). Electronically signed by: Chris Alicea MD 07/28/2023 03:50 AM ORCHID GROWER Due to temporary technical issues with the PACS/Fluency reporting system, reports are being signed by the in house radiologist without review as a courtesy to ensure prompt reporting. The interpreting r adiologist is fully responsible for the content of the report.
--- NOTE | 2023-07-28 16:05 | EKG ---
Test Date: 2023-07-28 Test Time: 03:26:54 Prototyper: Misa MEASUREMENT RESULTS: Intervals: Rate: 85 TX: 152 QRSD: 78 QT: 388 QTc: 461 [place]: P: 74 TX: 152 QRS: 59 T: 63 INTERPRETIVE STATEMENTS: Normal sinus rhythm Nonspecific ST and T wave abnormality Abnormal ECG Compared to ECG 04/06/2020 12:12:08 No significant changes Electronically Signed On 07-28-23 16:04:20 [employer]ODWORK[employer] HELPER by Salvatore Tarango
--- NOTE | 2023-07-28 18:07 | P.PN ---
Date of Service: 07/28/23 Patient seen and examined. She reports improvement in her shortness of breath. She also reported tremors which has been present for months. She is complaining of swelling in her mandibular area and some swellings in her groin. She reports a history of congestive heart failure and follows with Dr. Walker in [place]. Acute on chronic heart failure. NSTEMI Plan: Continue Lasix Full dose Lovenox Echocardiogram Cardiology consult CT soft tissue neck to evaluate patient's complaint.
--- NOTE | 2023-07-28 19:29 | CON ---
Date of Consultation: 07/28/2023 Reason For Consultation: CHF. History Of Present Illness: This is a 73-year-old female with history of COPD, CHF, carotid stenosis , coronary artery disease, who presented with worsening shortness of breath, orthopnea, lower extremi ty edema, and on and off chest pain as well. She sees a sewer bricklayer in [place] and she was told th at she has significant coronary artery disease, but no surgery can be done due to heart being very we ak. She was told that she needs to be put on medications to build her heart function up before an in tervention can be done. Past Medical History: As outlined above in the HPI. Medications: Refer reconciliation sheet for detailed list. Allergies: CODEINE. Family History: No premature coronary artery disease or cancer. Social History: She does not smoke or drink. Does not use any drugs. Review of Systems: All systems reviewed are negative except mentioned in HPI. Physical Examination: Vital Signs: Reviewed. Head and Neck: Pupils are equal, reactive to light. Intact eye movements. No JVD. No cervical lym phadenopathy. Neck: Supple. Thyroid is not enlarged. Lungs: Clear to auscultation bilaterally. No rhonchi, rales, or crackles. No accessory muscle use. Heart: Regular rate and rhythm. No extra sounds. Abdomen: Soft, nontender. Bowel sounds positive. No organomegaly or cyanosis. No rigidity or rebo und. Extremities: No clubbing, cyanosis. Trace edema. Neurologic: Alert, awake, oriented x3. No acute focal deficit appreciated. Investigations: BUN 25, creatinine 0.82. Troponin 126. NT proBNP 464. Hemoglobin 13.2. Chest x-r ay, bibasilar infiltrates. Assessment And Recommendation: 1.Shortness of breath, probably in part due to congestive heart failure. I agree with diuretics, ho wever, change it to q.12 hours. Monitor BUN, creatinine, electrolytes, and monitor her response and obtain an echocardiogram. 2.Elevated troponin with chest pain. Recommend to start aspirin 81 mg daily and also recommend to s tart anticoagulation with Lovenox 1 mg/kg subcu q.12 hours pending troponins trend and plan according ly and will discuss her case with her primary sewer bricklayer who is aware of her status. 3.Hypertension. Blood pressure is controlled. SR/MODL Voice ID: [id number] Report ID: [id number]
[2023-07-29 00:25] VITALS: O2SAT 92
[2023-07-29 04:44] LABS: Absolute Lymphocytes (CBC) 1.5 K/uL (0.7-4.9); Hematocrit 38.4 % (36.0-45.0); Lymphocytes % 8.9 % (15.3-44.8); MCV 83.4 fL (80-100); MPV 8.8 fL (7.6-11.3); Platelets 227 thou/uL (152-406)
[2023-07-29 05:17] LABS: ALT/SGPT 20 U/L (13-56); Albumin 3.4 g/dL (3.4-5.0); Alkaline Phosphatase 74 U/L (45-117); BUN Blood Urea Nitrogen 35 mg/dL (7-18); Bicarbonate 26 mEq/L (21-32); Bilirubin Total 0.6 mg/dL (0.2-1.0); Glomerular Filtration Rate 52 ml/min (=/>90); Glucose Level 120 mg/dL (74-106); Magnesium 2.2 mg/dL (1.6-2.4); Potassium 3.7 mEq/L (3.5-5.1); Protein, Total 6.9 g/dL (6.4-8.2); Sodium Level 143 mEq/L (136-145)
[2023-07-29 05:18] LABS: AST/SGOT < 4 U/L (15-37); Troponin High Sensitivity 133.1 pg/mL (<58.9)
[2023-07-29 05:38] LABS: Specific Gravity 1.026 (1.005-1.030); Urine Bacteria None Seen /HPF (<20); Urine Bilirubin NEGATIVE (Negative); Urine Blood Negative (Negative); Urine Clarity Clear (Clear); Urine Color Yellow (Yellow); Urine Glucose NEGATIVE (Negative); Urine Mucus Slight /HPF (None Seen); Urine Protein TRACE (Negative); Urine RBC <5 /HPF (None Seen); Urine Urobilinogen Normal (Normal); Urine WBC Clump Rare /HPF (None Seen); Urine pH 5.5 (5.0-7.0)
[2023-07-29 08:07] LABS: Blood Morphology Comment NOT SEEN (NOT SEEN); Platelet Estimate ADEQ
[2023-07-29 11:29] LABS: Urine Bacteria <20 /HPF (<20); Urine Bilirubin NEGATIVE (Negative); Urine Blood Negative (Negative); Urine Clarity Extremely Turbid (Clear); Urine Color Yellow (Yellow); Urine Glucose NEGATIVE (Negative); Urine Mucus 1+ /HPF (None Seen); Urine Protein TRACE (Negative); Urine RBC <5 /HPF (None Seen); Urine Urobilinogen Normal (Normal); Urine pH 5.5 (5.0-7.0)
--- NOTE | 2023-07-29 12:47 | ECHO ---
HEIGHT: 5 ft 0 in WEIGHT: 203 lb 12.8 oz DATE OF STUDY: 07/29/[address]: Jamil Wilson MD 2-DIMENSIONAL: YES M.MODE: YES DOPPLER: YES COLOR FLOW: YES TDS: YES PORTABLE: [*] DEFINITY: [*] BUBBLE STUDY: [*] DIAGNOSIS: CONGESTIVE HEART FAILURE EXACERBATION CARDIAC HISTORY: CATHERIZATION: NO SURGERY: NO PROSTHETIC VALVE: NO PACEMAKER: NO MEASUREMENTS (cm) DIASTOLIC (NORMALS) SYSTOLIC (NORMALS) IVSd 1.1 (0.6-1.2) LA Diam 2.2 (1.9-4.0) LVEF 39% LVIDd 4.7 (3.5-5.7) LVIDs 3.8 (2.0-3.5) %FS 19% LVPWd 1.1 (0.6-1.2) Ao Diam 3.2 (2.0-3.7) 2 DIMENSIONAL ASSESSMENT: RIGHT ATRIUM: NORMAL LEFT ATRIUM: NORMAL RIGHT VENTRICLE: NORMAL LEFT VENTRICLE: NORMAL TRICUSPID VALVE: TRACE TRICUSPID REGURGITATION MITRAL VALVE: NORMAL PULMONIC VALVE: NORMAL AORTIC VALVE: NORMAL PERICARDIAL EFFUSION: MILD, FIBRINOUS AORTIC ROOT: NORMAL LEFT VENTRICULAR WALL MOTION: NORMAL DOPPLER/COLOR FLOW: GRADE I DIASTOLIC DYSFUNCTION COMMENTS: 1. NORMAL LEFT VENTRICULAR SYSTOLIC FUNCTION, EJECTION FRACTION 55-60%, NORMAL WALL MOTION 2. GRADE I DIASTOLIC DYSFUNCTION 3. MILD CIRCUMFERENTIAL FIBRINOUS PERICARDIAL EFFUSION TECHNOLOGIST: KAREN PAYNE
[2023-07-29] MEDS: FUROSEMIDE 20 MG/ 2ML VIAL IV SCH (14:36)
--- NOTE | 2023-07-29 14:37 | P.PN ---
Subjective Date of Service: 07/29/23 Chief Complaint: Shortness of breath Patient reports some improvement in his shortness of breath. She is stable on room air. No issues overnight. Physical Examination - Vital Signs Temperature: 98.0 F Blood Pressure: 121/72 Pulse: 88 Respirations: 16 Pulse Ox (%): 96 Assessment And Plan - Plan Physical examination General: Alert and oriented x3, NAD, frail-appearing. HEENT: Conjunctiva not pale, anicteric sclera Neck: Supple, no elevated JVD Heart: Heart sounds 1 and 2 normal, regular rhythm, normal rate, no pedal edema Lungs: Clear to auscultation bilaterally, adequate breath sounds bilaterally, no rhonchi or crackles. Abdomen: Soft, nondistended, nontender, normal bowel sounds. Extremities: No tenderness, no deformity Skin: Normal skin turgor, no rash, no nodules or ulcers. Neuro: No focal motor deficit. Normal speech. Psychiatry: Normal mood, no agitation. Plan: Acute on chronic diastolic heart failure NSTEMI CAD Cardiology Dr. Tarango's input appreciated Continue IV Lasix. Full dose Lovenox for NSTEMI Echocardiogram shows normal EF. Continue other home medications for CAD. Cardiology to follow. Carotid stenosis Aspirin Lipitor Arthritis Analgesics as needed. DVT prophylaxis: Lovenox.
[2023-07-29 14:42] VITALS: BP 121/72; TEMP 98
[2023-07-29] MEDS ORDERED: carvediloL 12.5 MG TAB PO SCH (14:55)
--- NOTE | 2023-07-29 15:57 | P.PN ---
Subjective Date of Service: 07/29/23 Chief Complaint: Shortness of breath Subjective: No new changes (patient feels better today.) Review of Systems 10-point ROS is otherwise unremarkable Physical Examination - Vital Signs Temperature: 98.0 F Blood Pressure: 121/72 Pulse: 88 Respirations: 16 Pulse Ox (%): 96 - Physical Exam General: Alert, Oriented x3 HEENT: Atraumatic Neck: Supple Respiratory: Clear to auscultation bilaterally Cardiovascular: No edema, Normal S1 S2 Gastrointestinal: Normal bowel sounds Assessment And Plan - Current Problems (Diagnosis) (1) CAD (coronary artery disease) Current Visit: Yes Status: Acute Plan: patient has been having chest pain for the last few months, she got an established weed sprayer who has been working her up for that. Troponin mild elevated and there is no significant delta. Continue ASA 81 mg daily and Lipitor 40 mg daily Patient can be discharged and follow up with her weed sprayer for further work up. (2) Chronic diastolic heart failure Current Visit: Yes Status: Acute Plan: Continue patient home medications, including Coreg, Losartan and Spirnolactone please add Lasix 30 mg po daily on discharge for 5 days.
[2023-07-29] MEDS: ASPIRIN EC 81 MG TAB PO SCH (16:18)
[2023-07-29] MEDS: ATORVASTATIN 20 MG TAB PO SCH (16:18)
[2023-07-29] MEDS: LOSARTAN POTASSIUM 50 MG TABLET PO SCH (16:18)
--- NOTE | 2023-07-29 18:47 | P.DS ---
Admission Date: 07/28/23 Discharge Date: 07/29/23 Disposition: ROUTINE DISCHARGE Discharge Condition: FAIR Reason for Admission: Shortness of breath Brief History of Present Illness: 73-year-old female with a history of CHF, COPD, carotid stenosis, CAD and arthritis presented to the ED with 5 days of worsening shortness of breath with minimal exertion. Shortness of breath has gradually worsened and became associated with intermittent sharp left-sided chest pain. She has nonproductive cough mild leg swelling but denies paralysis manage no dyspnea or orthopnea. On arrival to the ED her vital signs were within normal limits. Her labs showed BUN 25, BNP 464 and troponin of 126. Chest x-ray showed patchy bibasilar opacities. No acute findings on EKG. Patient admitted for further management. Hospital Course: Patient admitted to the medical floor and the following medical problems addressed Acute on chronic diastolic heart failure NSTEMI CAD Patient seen and evaluated by cardiology. She was treated with IV Lasix. She was on full dose Lovenox for NSTEMI Echocardiogram shows normal EF. Patient continued on home medications for CAD. Vitals were stable, her symptoms improved, oxygen saturation stable on room air. Patient indicates that she has improved to baseline. She is deemed stable for discharge per cardiology. Carotid stenosis Managed with aspirin and Lipitor Vital Signs/Physical Exam: Temp Pulse Resp BP Pulse Ox 98.0 F 88 16 121/72 96 07/29/23 15:54 07/29/23 15:54 07/29/23 15:54 07/29/23 15:54 07/29/23 15:54 General: Alert, In no apparent distress, Oriented x3 Neck: JVD not distended Respiratory: Clear to auscultation bilaterally, Normal air movement Cardiovascular: No edema, Regular rate/rhythm, Normal S1 S2 Gastrointestinal: Normal bowel sounds, Soft and benign, Non-distended Musculoskeletal: No swelling Integumentary: No rashes, No cyanosis Neurological: Normal strength at 5/5 x4 extr Laboratory Data at Discharge: WBC 16.40 thou/uL (4.3-10.9) H 07/29/23 04:22 Hgb 13.1 g/dL (12.0-15.0) 07/29/23 04:22 Hct 38.4 % (36.0-45.0) 07/29/23 04:22 Plt Count 227 thou/uL (152-406) 07/29/23 04:22 PT 12.3 SECONDS (9.5-12.5) 07/28/23 03:00 INR 1.12 07/28/23 03:00 Sodium 143 mEq/L (136-145) 07/29/23 04:22 Potassium 3.7 mEq/L (3.5-5.1) 07/29/23 04:22 BUN 35 mg/dL (7-18) H 07/29/23 04:22 Creatinine 1.13 mg/dL (0.55-1.02) H 07/29/23 04:22 Glucose 120 mg/dL (74-106) H 07/29/23 04:22 Magnesium 2.2 mg/dL (1.6-2.4) 07/29/23 04:22 Total Bilirubin 0.6 mg/dL (0.2-1.0) 07/29/23 04:22 AST < 4 U/L (15-37) L 07/29/23 04:22 ALT 20 U/L (13-56) 07/29/23 04:22 Alkaline Phosphatase 74 U/L (45-117) 07/29/23 04:22 Home Medications: Atorvastatin Calcium 20 mg PO DAILY 07/28/23 Carvedilol [Coreg] 12.5 mg PO DAILY 07/28/23 Losartan Potassium 50 mg PO DAILY 07/28/23 Spironolactone 25 mg PO BID 07/28/23 Vitamin D3 1 cap PO DAILY 07/28/23 Followup: PRINCESS NAVARRO [UNKNOWN] - 1-2 Days Maisha Samuels FNP [Primary Care Provider] - 2-3 Days Time spent managing pt's care (in minutes): 28
[2023-07-29] MEDS ORDERED: ENOXAPARIN 100 MG/ML SYR SQ SCH (21:00)
[2023-07-29] MEDS ORDERED: SPIRONOLACTONE 25 MG TABLET PO SCH (21:00)
[2023-07-30] MEDS ORDERED: VITAMIN D3 PO SCH (09:00)
== END 2023-07-29 19:05 | disposition home or self-care (01) | DRG 280 ==
LOC: ER 02:41 → ERHOLD 04:54 → 2ND 17:29
PROVIDERS: ADMIT Internal Medicine; ATTEND Internal Medicine
DX: I21.4 Non-ST elevation (NSTEMI) myocardial infarction (principal); I50.33 Acute on chronic diastolic (congestive) heart failure; M19.90 Unspecified osteoarthritis, unspecified site; I65.29 Occlusion and stenosis of unspecified carotid artery; J44.9 Chronic obstructive pulmonary disease, unspecified; I25.10 Atherosclerotic heart disease of native coronary artery without angina pectoris; Z88.5 Allergy status to narcotic agent; Z79.02 Long term (current) use of antithrombotics/antiplatelets; Z79.899 Other long term (current) drug therapy
CPT/HCPCS: 36415; 71045; 80048; 80053; 80076; 81001; 83605; 83735; 83880; 84145; 84484; 85025; 85610; 87040; 93005; 93306; J1650; J1940; J2930; J7613; J7644

== ENCOUNTER 2024-03-28 19:17 | Emergency (ER) | payer OTHER ==
[2024-03-28 20:33] LABS: Absolute Basophils 0.1 K/uL (0-0.5); Absolute Eosinophils 0.2 K/uL (0-0.5); Absolute Lymphocytes (CBC) 1.4 K/uL (0.7-4.9); Absolute Monocytes 0.7 K/uL (0.1-1.3); Absolute Neutrophil 9.6 K/uL (1.8-8.0); Basophils % 0.8 % (0-1.3); Eosinophils % 1.4 % (0-4.4); Hematocrit 39.3 % (36.0-45.0); Hemoglobin 13.1 g/dL (12.0-15.0); Lymphocytes % 11.8 % (15.3-44.8); MCH 28.2 pg (27.0-35.0); MCHC 33.3 g/dL (32.0-36.0); MCV 84.6 fL (80-100); MPV 8.4 fL (7.6-11.3); Monocytes % 5.5 % (3.3-12.3); Neutrophils % 80.5 % (41.7-73.7); Nucleated Red Blood Cells % 0.2 % (0-0); Platelets 247 thou/uL (152-406); RBC Red Blood Cell Count 4.65 M/uL (3.86-4.86); Red Cell Distribution Width 14.1 % (12.1-15.2)
[2024-03-28 20:41] LABS: PT Prothrombin Time 13.2 SECONDS (9.4-12.5); PTT, Activated Partial Thromb 33.6 SECONDS (24.3-36.9); Protime INR 1.18
[2024-03-28 20:50] LABS: Albumin 3.8 g/dL (3.4-5.0); Albumin/Globulin Ratio 1.2 (1.1-1.8); Anion Gap 9.2 mEq/L (5.0-15.0); Bilirubin Total 0.8 mg/dL (0.2-1.0); Globulin 3.3 g/dL (2.3-3.5); Potassium 4.2 mEq/L (3.5-5.1); Protein, Total 7.1 g/dL (6.4-8.2)
--- NOTE | 2024-03-28 20:50 | RAD REPORT ---
Procedure: Chest Single View HISTORY: Chest pain COMPARISON: 2022 FINDINGS: The lungs appear clear of acute infiltrate. No significant pleural effusion noted. The heart is mildly enlarged. IMPRESSION: No acute abnormality is displayed.
[2024-03-28] MEDS ORDERED: METHYLPREDNISOLONE 125 MG INJ ONE (23:12)
[2024-03-28] MEDS ORDERED: IPRATROPIUM BROM 0.5MG/2.5ML ONE (23:12)
[2024-03-28] MEDS ORDERED: ALBUTEROL 2.5 MG/3 ML NEB SOL ONE (23:12)
--- NOTE | 2024-03-28 23:26 | ER ---
Nurse's Notes [facility] Name: Traci Sams Age: 74 yrs Sex: Female : 1950 Arrival Date: 03/28/2024 Time: 19:17 Bed 23 Private MD: Diagnosis: Acute upper respiratory infection, unspecified Presentation: 03/28 19:22 Chief complaint: EMS states: toned out for n/v/d. Patient went to urgent care today and me1 was dx w/pneumonia. After taking her antibiotics she vomited and then had diarrhea. Was told to come to ER if she didn't tolerate po abx by urgent care. Coronavirus screen: Vaccine status: Patient reports being unvaccinated. Ebola Screen: No symptoms or risks identified at this time. Initial Sepsis Screen: Does the patient meet any 2 criteria? No. Patient's initial sepsis screen is negative. Does the patient have a suspected source of infection?. Risk Assessment: Do you want to hurt yourself or someone else? Patient reports no desire to harm self or others. Onset of symptoms was March 28, 2024. 19:22 Method Of Arrival: EMS [facility] 19:22 Method Of Arrival: EMS: [place] [facility] 19:22 Acuity: SHERON 3 me1 Triage Assessment: 19:25 General: Appears ill, well groomed, well developed, well nourished, Behavior is calm, me1 cooperative, appropriate for age, Reports. Pain: Denies pain. EENT: No signs and/or symptoms were reported regarding the EENT system. Neuro: Level of Consciousness is awake, alert, obeys commands, Oriented to person, place, time, situation, Appropriate for age. Cardiovascular: Patient's skin is warm and dry. Respiratory: Airway is patent Respiratory effort is even, unlabored, Respiratory pattern is regular, symmetrical. Respiratory: Reports shortness of breath on exertion cough that is productive. GI: Reports diarrhea, nausea, vomiting, since taking her antibiotics this evening. Historical: - Allergies: 19:25 Codeine; me1 - PMHx: 19:25 Arthritis; Congestive heart failure; COPD; Osteoporosis; me1 - Immunization history:: Adult Immunizations unknown. - Infectious Disease History:: Denies. - Social history:: Smoking status: Patient/guardian denies using tobacco, but has a distant history of tobacco abuse. Screenin:[facility] ED Fall Risk Assessment (Adult) History of falling in the last 3 months, me1 including since admission No falls in past 3 months (0 pts) Confusion or Disorientation No (0 pts) Intoxicated or Sedated No (0 pts) Impaired Gait No (0 pts) Mobility Assist Device Used No (0 pt) Altered Elimination No (0 pt) Score/Fall Risk Level 0 - 2 = Low Risk Maintained a safe environment, Provided non-skid footwear, Hourly rounding (assess needs \T\ fall precautionary measures) done. Abuse screen: Denies threats or abuse. Nutritional screening: No deficits noted. Tuberculosis screening: No symptoms or risk factors identified. Assessment: 19:29 General: See triage assessment.. GI: Reports diarrhea, nausea, vomiting. me1 22:10 General: Appears in no apparent distress. uncomfortable, obese, well groomed, well vc1 developed, Behavior is calm, cooperative, appropriate for age. Pain: Denies pain. Neuro: Level of Consciousness is awake, alert, obeys commands, Oriented to person, place, time, situation, Appropriate for age. Cardiovascular: Heart tones S1 S2 present Capillary refill < 3 seconds Patient's skin is warm and dry. Respiratory: Airway is patent Respiratory effort is even, unlabored, Respiratory pattern is regular, symmetrical, Breath sounds are clear bilaterally. GI: Abdomen is round non-distended, Reports diarrhea, nausea. : No deficits noted. No signs and/or symptoms were reported regarding the genitourinary system. EENT: No deficits noted. No signs and/or symptoms were reported regarding the EENT system. Derm: Skin is intact, is healthy with good turgor, Skin is dry, Skin is pink, warm \T\ dry. Skin temperature is warm. Musculoskeletal: No deficits noted. No signs and/or symptoms reported regarding the musculoskeletal system. 03/29 00:00 General: Pt calling to find transportation. vc1 00:26 Reassessment: Patient appears in no apparent distress at this time. No changes from vc1 previously documented assessment. Patient and/or family updated on plan of care and expected duration. Pain level reassessed. Patient is alert, oriented x 3, equal unlabored respirations, skin warm/dry/pink. Vital Signs: 03/28 19:22 BP 107 / 87; Pulse 86; Resp 20; Temp 97.8; Pulse Ox 95% ; Weight 92.53 kg; Height 5 ft. me1 0 in. ; Pain 0/10; 22:30 BP 116 / 78; Pulse 79; Resp 18; Pulse Ox 98% ; vc1 23:00 BP 126 / 69; Pulse 79; Resp 19; Pulse Ox 98% ; vc1 03/29 00:00 BP 105 / 82; Pulse 84; Resp 21; Pulse Ox 93% on R/A; vc1 00:15 BP 120 / 66; Pulse 74; Resp 17; Pulse Ox 96% ; vc1 03/28 19:22 Body Mass Index 39.84 (92.53 kg, 152.4 cm) me1 03/28 19:22 Pain Scale: Adult [facility] ED Course: 03/28 19:19 Patient arrived in ED. rv1 19:19 No Gutierrez, RN is Primary Nurse. me1 19:25 Triage completed. me1 19:25 Arm band placed on Patient placed in an exam room. me1 19:29 Patient has correct armband on for positive identification. Bed in low position. Call me1 light in reach. Side rails up X2. Provided Education on: POC. Verbalized understanding.. Client placed on continuous cardiac and pulse oximetry monitoring. NIBP monitoring applied. Pulse ox on. NIBP on. 19:29 No provider procedures requiring assistance completed. me1 19:30 Connie [facility]C [facility]. kb 19:30 Dav Edwards MD is Attending Physician. kb 20:21 Initial lab(s) drawn, by ak, sent to lab. First set of blood cultures drawn by ak, me1 Second set of blood cultures drawn by ak. 20:22 Inserted saline lock: 22 gauge in right antecubital area, using aseptic technique. me1 20:34 EKG done, by ED staff, reviewed by Connie ZUÑIGA. me1 03/29 00:47 IV discontinued, intact, bleeding controlled, No redness/swelling at site. Pressure vc1 dressing applied. Administered Medications: 03/28 23:27 Drug: MethylPrednisoLONE IVP 125 mg IVP once Route: IVP; Site: right antecubital; vc1 03/29 00:29 Follow up: Response: No adverse reaction; Marked relief of symptoms vc1 03/28 23:28 Drug: Albuterol Inhalation 2.5 mg Inhalation once Route: Inhalation; vc1 03/29 00:29 Follow up: Response: No adverse reaction; Marked relief of symptoms vc1 03/28 23:28 Drug: Ipratropium Inhalation Aerosol 0.5 mg Inhalation once Route: Inhalation; vc1 03/29 00:29 Follow up: Response: No adverse reaction; Marked relief of symptoms vc1 Medication: 03/28 19:29 VIS not applicable for this client. me1 Outcome: 23:25 Discharge ordered by . alfonzo 03/29 00:46 Discharged to home ambulatory, vc1 Condition: good Discharge instructions given to patient, Instructed on discharge instructions, follow up and referral plans. medication usage, Demonstrated understanding of instructions, follow-up care, medications, Prescriptions given X 2, 00:47 Patient left the ED. vc1 Signatures: Connie Lee, JOSELYN-Cheryl MATTSONP-Lamar Monroy RN RN vc1 Esther Self rv1 No Gutierrez RN RN ak1
--- NOTE | 2024-03-28 23:26 | EDPHYS ---
Physician Documentation [facility] Name: Traci Sams Age: 74 yrs Sex: Female : 1950 Arrival Date: 03/28/2024 Time: 19:17 Bed 23 Private MD: ED Physician Dav Edwards HPI: 03/28 23:23 This 74 yrs old Female presents to ER via EMS with complaints of kb Nausea/Vomiting/Diarrhea. 23:23 Pt is a 74 year old female who presents for pneumonia. States she has had congestion kb for 1.5 weeks so she went to urgent care today and was diagnosed with pneumonia. states she was given antibiotics and took her first doses tonight. States she vomited immediately after taking them and had an episode of diarrhea so she came in. States the provider at told her she needed to come to the ER for IV antibiotics if she cannot tolerate the oral antibiotics. . Historical: - Allergies: 19:25 Codeine; me1 - PMHx: 19:25 Arthritis; Congestive heart failure; COPD; Osteoporosis; me1 - Immunization history:: Adult Immunizations unknown. - Infectious Disease History:: Denies. - Social history:: Smoking status: Patient/guardian denies using tobacco, but has a distant history of tobacco abuse. ROS: 23:21 Constitutional: As per HPI kb Exam: 23:05 Constitutional: This is a well developed, well nourished patient who is awake, alert, kb and in no acute distress. Head/Face: Normocephalic, atraumatic. ENT: Moist Mucous membranes Cardiovascular: Regular rate Respiratory: Respirations even and unlabored. No increased work of breathing. Talking in full sentences Abdomen/GI: Soft, non-tender. No distention Skin: Warm, dry with normal turgor. Normal color. MS/ Extremity: Pulses equal, no cyanosis. Neurovascular intact. Full, normal range of motion. Neuro: Awake and alert, GCS 15, oriented to person, place, time, and situation. 23:05 ECG was reviewed by the Attending Physician. Vital Signs: 19:22 BP 107 / 87; Pulse 86; Resp 20; Temp 97.8; Pulse Ox 95% ; Weight 92.53 kg; Height 5 ft. me1 0 in. ; Pain 0/10; 22:30 BP 116 / 78; Pulse 79; Resp 18; Pulse Ox 98% ; vc1 23:00 BP 126 / 69; Pulse 79; Resp 19; Pulse Ox 98% ; vc1 03/29 00:00 BP 105 / 82; Pulse 84; Resp 21; Pulse Ox 93% on R/A; vc1 00:15 BP 120 / 66; Pulse 74; Resp 17; Pulse Ox 96% ; vc1 03/28 19:22 Body Mass Index 39.84 (92.53 kg, 152.4 cm) ut1 03/28 19:22 Pain Scale: Adult [facility] MDM: 03/28 19:30 Medical Screening Exam initiated kb 23:21 Differential diagnosis: bronchitis, uri, pneumonia, covid, flu. Data reviewed: vital kb signs, nurses notes. Consideration of Admission/Observation Escalation of care including admission/observation considered. admission considered but pt nontoxic in appearance, xray negative for pneumonia. Counseling: I had a detailed discussion with the patient and/or guardian regarding the historical points, exam findings, and any diagnostic results supporting the discharge/admit diagnosis, lab results, radiology results, the need for outpatient follow up, a family practitioner, to return to the emergency department if symptoms worsen or persist or if there are any questions or concerns that arise at home. ED course: Pt refused covid and flu tests because she does not believe in them. Pt was given augmentin and zithromax by urgent care. Will give prescription for albuterol for her nebulizer machine. 03/28 19:42 Order name: Blood Culture Adult (2) 03/28 20:35 Order name: CBC with Automated Diff; Complete Time: 21:12 EDMS 03/28 20:41 Order name: Protime (+INR); Complete Time: 21:12 EDMS 03/28 20:41 Order name: PTT, Activated Partial Thromb; Complete Time: 21:12 EDMS 03/28 20:50 Order name: Comprehensive Metabolic Panel; Complete Time: 21:12 EDMS 03/28 20:52 Order name: Lactate w/ 2H reflex if indic.; Complete Time: 21:12 EDMS 03/28 20:50 Order name: RAD; Complete Time: 21:12 EDMS 03/28 19:42 Order name: Cardiac monitoring; Complete Time: 20:33 03/28 19:42 Order name: EKG - Nurse/Tech; Complete Time: 20:33 03/28 19:42 Order name: IV Saline Lock - Large Bore; Complete Time: 20:23 kb 03/28 19:42 Order name: Labs collected and sent; Complete Time: 20:23 kb 03/28 19:42 Order name: O2 Per Protocol; Complete Time: 20:23 kb 03/28 19:42 Order name: O2 Sat Monitoring; Complete Time: 20:23 kb 03/28 19:42 Order name: Vital Signs; Complete Time: 20:23 kb EC:05 Rate is 78 beats/min. Rhythm is regular. QRS [place] is Normal. [place] interval is normal at kb 156 msec. QRS interval is normal at 80 msec. QT interval is normal at 440 msec. Administered Medications: 23:27 Drug: MethylPrednisoLONE IVP 125 mg IVP once Route: IVP; Site: right antecubital; vc1 03/29 00:29 Follow up: Response: No adverse reaction; Marked relief of symptoms vc1 03/28 23:28 Drug: Albuterol Inhalation 2.5 mg Inhalation once Route: Inhalation; vc1 03/29 00:29 Follow up: Response: No adverse reaction; Marked relief of symptoms vc1 03/28 23:28 Drug: Ipratropium Inhalation Aerosol 0.5 mg Inhalation once Route: Inhalation; vc1 03/29 00:29 Follow up: Response: No adverse reaction; Marked relief of symptoms vc1 Disposition Summary: 03/28/24 23:25 Discharge Ordered Notes: Location: Home kb Condition: Stable kb Diagnosis - Acute upper respiratory infection, unspecified kb Followup: kb - With: Emergency Department - When: As needed - Reason: Worsening of condition Followup: kb - With: Private Physician - When: 2 - 3 days - Reason: Recheck today's complaints, Continuance of care, Re-evaluation by your physician Discharge Instructions: - Discharge Summary Sheet kb - Upper Respiratory Infection, Adult kb Forms: - Medication Reconciliation Form kb - Antibiotic Education kb - Prescription Opioid Use kb - Patient Portal Instructions kb - Leadership Thank You Letter kb Prescriptions: - Prednisone 20 mg Oral Tablet - take 1 tablet ORAL route once daily for 5 days; 5 tablet; Refills: 0, Product kb Selection Permitted - Albuterol Sulfate 2.5 mg /3 mL (0.083 %) Inhalation Solution for Nebulization - inhale 3 milliliter NEBULIZATION route every 8 hours As needed; 1 unit; kb Refills: 0, Product Selection Permitted Addendum: 03/31/2024 22:48 Co-signature as Attending Physician, Dav Edwards MD I reviewed the patient's care r n provided by the Advanced Practice Provider and agree with the diagnosis and treatment plan. Signatures: Dispatcher [employer] EDMS Jesus Connie, WELDER ASSEMBLER-C WELDER ASSEMBLER-Ckb Dav Edwards MD MD rn Lamar Diaz RN RN vc1 No Gutierrez RN RN me1 Corrections: (The following items were deleted from the chart) 03/28 19:42 19:42 BLOOD CULTURE*+BA.LAB.BRZ ordered. EDMS EDMS 19:42 19:42 CBC+H.LAB.BRZ ordered. EDMS EDMS 19:42 19:42 COMPREHENSIVE METABOLIC PANEL+C.LAB.BRZ ordered. EDMS EDMS 19:42 19:42 LACTATE+C.LAB.BRZ ordered. EDMS EDMS 19:42 19:42 PROTIME (+INR)+COAG.LAB.BRZ ordered. EDMS EDMS 19:42 19:42 PTT, ACTIVATED+COAG.LAB.BRZ ordered. EDMS EDMS 19:42 19:42 Chest Single View+RAD.RAD.BRZ ordered. EDMS EDMS 19:42 19:42 Influenza Screen (A \T\ B)+BA.LAB.BRZ ordered. EDMS EDMS 19:42 19:42 SARS-COV-2 Antigen Rapid+I.LAB.BRZ ordered. EDMS EDMS 23:28 19:42 Accucheck ordered. kb vc1
[2024-03-29 10:54] VITALS: TEMP 97.8
[2024-03-29 11:11] VITALS: BP 120/66; O2SAT 96
--- NOTE | 2024-03-29 12:14 | EKG ---
Test Date: 2024-03-28 Test Time: 20:31:49 Business Support Liaison: MEASUREMENT RESULTS: Intervals: Rate: 78 ID: [id number] QRSD: 80 QT: 386 QTc: 440 [place]: P: 69 ID: [id number] QRS: 67 T: 29 INTERPRETIVE STATEMENTS: Normal sinus rhythm Nonspecific ST and T wave abnormality Abnormal ECG Compared to ECG 07/28/2023 03:26:54 No significant changes Electronically Signed On 03-29-24 12:12:29 CDT by Joel Aguayo
== END 2024-03-29 00:47 | disposition home or self-care (01) ==
LOC: ER 19:17
DX: J06.9 Acute upper respiratory infection, unspecified (principal); J44.9 Chronic obstructive pulmonary disease, unspecified; I50.9 Heart failure, unspecified
CPT/HCPCS: 93005; 87040 ×2; 85025; 36415; 85610; 83605; 85730; 80053; 71045; 96374; 99285; J7613; J7644; J2919

== ENCOUNTER 2025-03-24 11:06 | Emergency (ER) | payer OTHER ==
[2025-03-24 12:21] LABS: Absolute Lymphocytes (CBC) 1.3 K/uL (0.7-4.9); Hematocrit 36.8 % (36.0-45.0); Hemoglobin 12.1 g/dL (12.0-15.0); MCH 27.7 pg (27.0-35.0); MCHC 33.1 g/dL (32.0-36.0); MCV 83.8 fL (80-100); MPV 9.0 fL (7.6-11.3); Nucleated RBC Absolute Count 0.0 (0-0); Nucleated Red Blood Cells % 0.0 % (0-0); RBC Red Blood Cell Count 4.39 M/uL (3.86-4.86); White Blood Count 8.10 thou/uL (4.3-10.9)
[2025-03-24 12:45] LABS: ALT/SGPT 17.0 U/L (13-56); AST/SGOT 14.0 U/L (15-37); Albumin 3.2 g/dL (3.4-5.0); Albumin/Globulin Ratio 0.9 (1.1-1.8); Alkaline Phosphatase 86.0 U/L (45-117); Anion Gap 8.3 mEq/L (5.0-15.0); BUN Blood Urea Nitrogen 24.0 mg/dL (7-18); Globulin 3.5 g/dL (2.3-3.5); Glucose Level 117.0 mg/dL (74-106); Lipase 16.0 U/L (13-75); Potassium 4.3 mEq/L (3.5-5.1); Troponin High Sensitivity 5.2 pg/mL (<58.9)
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
--- NOTE | 2025-03-24 14:49 | RAD REPORT ---
EXAM: CT CHEST, ABDOMEN AND PELVIS WITHOUT CONTRAST CLINICAL INDICATION: Female, 75 years old. [facility] MAIN Pain;Trauma Bed Name: 7 TECHNIQUE: CT chest, abdomen and pelvis was performed, without IV contrast, as per department protoco l. Axial, sagittal and coronal reconstructions were obtained. One or more of the following dose reduction techniques were used: Automated exposure control, adjustment of the mA and/or kV according to the patient size, and/or iterative reconstruction. Unless otherwise specified, incidental findings do not require dedicated imaging follow-up. COMPARISON: 12/05/2024 CT chest FINDINGS: The lack of intravenous contrast limits the sensitivity of this exam for evaluation of solid visceral organs, vascular structures, and retroperitoneum. Chest: LOWER NECK/CHEST WALL: Visualized thyroid gland and soft tissues are normal. LUNGS AND AIRWAYS: Airways are clear. No evidence of airspace or interstitial process. No nodules. PLEURA: No pleural effusion. No pneumothorax. Hemidiaphragms are normally positioned. MEDIASTINUM AND LYMPH NODES: No mediastinal mass or fluid collection. Normal size mediastinal, hilar, and axillary lymph nodes. THORACIC AORTA: Normal caliber and configuration. PULMONARY ARTERIES: Normal caliber. HEART: Unremarkable. Abdomen/Pelvis LIVER: Normal in size and contour. No focal lesion. GALLBLADDER/BILE DUCTS: No biliary ductal dilatation. PANCREAS: No mass, ductal dilation, or vern-pancreatic fluid. SPLEEN: Normal size. No focal lesion. ADRENALS: Normal; no mass. KIDNEYS AND URETERS: Normal size and contour. No hydronephrosis. GASTROINTESTINAL TRACT: Stomach is non-dilated. Small bowel has normal course and caliber. No colonic wall thickening or pericolonic inflammatory changes. PERITONEUM: No free fluid. LYMPH NODES: No lymphadenopathy. ABDOMINAL AORTA AND OTHER VESSELS: Normal caliber aorta and IVC. URINARY BLADDER: Normal contour. REPRODUCTIVE ORGANS: No pathologic process. MUSCULOSKELETAL: No acute or suspicious osseous abnormality. ADDITIONAL FINDINGS: Small left inguinal hernia containing fat. IMPRESSION: No acute or traumatic abnormalities in the chest, abdomen, or pelvis.
--- NOTE | 2025-03-24 14:54 | RAD REPORT ---
EXAM: CT brain without contrast HISTORY: Pain; Trauma COMPARISON: 1020 02/23/1725 TECHNIQUE: Multiple contiguous axial images were obtained and a CT of the brain without contrast. Sag ittal and coronal reformats were performed. FINDINGS: No evidence of hydrocephalus, intracranial hemorrhage, or extra-axial fluid collection. Mild brain atrophy with nonspecific mild periventricular and deep white matter hypodensities, stable , suggestive of chronic microvascular ischemic changes present. The calvarium is intact. The visualized paranasal sinuses and mastoid air cells are essentially clear . IMPRESSION: No evidence of acute intracranial abnormality. Stable chronic findings as above EXAM: CT of the cervical spine without contrast HISTORY: Pain; Trauma COMPARISON: None TECHNIQUE: Multiple contiguous axial images were obtained in a CT of the cervical spine without contr ast. Sagittal and coronal reformats were performed. FINDINGS: The vertebral bodies demonstrate normal height and alignment. No evidence of acute fracture or subluxation.. No degenerative changes are present. No prevertebral soft tissue swelling is seen. The posterior facets are well aligned. Normal alignment of the skull base with the cervical spine is seen. The lung apices are unremarkable. IMPRESSION: No evidence of acute osseous abnormality of the cervical spine.
[2025-03-24 17:33] VITALS: TEMP 97.8
[2025-03-24 17:44] VITALS: BP 109/58; O2SAT 97
== END 2025-03-24 15:18 | disposition home or self-care (01) ==
LOC: ER 11:06
DX: R51.9 Headache, unspecified (principal); M54.2 Cervicalgia; V09.9XXA Pedestrian injured in unspecified transport accident, initial encounter; Z79.01 Long term (current) use of anticoagulants
CPT/HCPCS: 36415; 70450; 71250; 72125; 74176; 80053; 83690; 84484; 85025; 93005; 99284